=== PATIENT | male | born 1970 | race Two or more races ===

== ENCOUNTER 2017-11-18 12:19 | Inpatient (IN) | payer OTHER ==
[2017-11-18 13:00] VITALS: BMI 22.3
--- NOTE | 2017-11-18 15:10 | HP ---
COWS - Scale Resting Pulse: 0= [place] 80 or Below Sweatin= Chills/Flushing Restless Observation: 1= Difficult to Sit Still Pupil Size: 1= Pupils >than Normal Bone or Joint Aches: 2= Severe Diffuse Aches Runny Nose/ Eye Tearin= Runny Nose/Eyes GI Upset > 30mins: 3= Vomiting/Diarrhea Tremor Observation: 2= Slight Tremor Visible Yawning Observation: 1= 1-2x During Session Anxiety or Irritability: 2=Irritable/Anxious Goose Flesh Skin: 0=Smooth Skin COWS Score: 15 Admission ROS S - [facility] Chief Complaint: i need help to stop using percocet and oxycodone,refer for detox from [facility] with the letter weight loss multiple sclerosis with blindness of right eye since 2009 also cocaine and marijuana abused anxiety,depression,insomnia Allergies/Adverse Reactions: Allergies Allergy/AdvReac Type Severity Reaction Status Date / Time No Known Allergies Allergy Verified 11/18/17 14:50 History of Present Illness: this 46 years old male with opiate dependence,cocaine and marijuana dependence, need help to stop using and refer for detox from [facility] as mention above blindness of right eye from multiple sclerosis since 2009 Exam Limitations: No Limitations - Ebola screening Have you traveled outside of the country in the last 21 days: No (N) Have you had contact with anyone from an Ebola affected area: No Have you been sick,other than usual withdrawal symptoms: No Do you have a fever: No - Review of Systems Constitutional: Chills, Loss of Appetite, Malaise, Night Sweats, Changes in sleep, Weakness, Unintentional Wgt. Loss EENT: reports: Nose Congestion (blindness of right eye), Other Respiratory: reports: No Symptoms reported Cardiac: reports: No Symptoms Reported GI: reports: Diarrhea, Nausea, Vomiting, Abdominal cramping : reports: No Symptoms Reported Musculoskeletal: reports: Back Pain, Joint Pain, Muscle Pain Integumentary: reports: Dryness Neuro: reports: Headache, Tremors Endocrine: reports: No Symptoms Reported Hematology: reports: No Symptoms Reported Psychiatric: reports: No Sypmtoms Reported, Judgement Intact, Mood/Affect Appropiate, Orientated x3, Anxious, Depressed Patient History - Patient Medical History Hx Anemia: No Hx Asthma: No Hx Chronic Obstructive Pulmonary Disease (COPD): No Hx Cancer: No Hx Cardiac Disorders: No Hx Congestive Heart Failure: No Hx Hypertension: No Hx Hypercholesterolemia: No Hx Pacemaker: No HX Cerebrovascular Accident: No Hx Seizures: No Hx Dementia: No Hx Diabetes: No Hx Gastrointestinal Disorders: No Hx Liver Disease: No Hx Genitourinary Disorders: No Hx Sexually Transmitted Disorders: No Hx Renal Disease (ESRD): No Hx Thyroid Disease: No Hx Human Immunodeficiency Virus (HIV): No Hx Hepatitis C: No Hx Depression: Yes Hx Suicide Attempt: Yes (2002 overdose will pills) Hx Bipolar Disorder: No Hx Schizophrenia: No Other Medical History: no suicidal,no homicidal - Patient Surgical History Past Surgical History: No Hx Neurologic Surgery: No Hx Cataract Extraction: No Hx Cardiac Surgery: No Hx Lung Surgery: No Hx Breast Surgery: No Hx Breast Biopsy: No Hx Abdominal Surgery: No Hx Appendectomy: No Hx Cholecystectomy: No Hx Genitourinary Surgery: No Hx Section: No Hx Orthopedic Surgery: No Anesthesia Reaction: No - PPD History Documented Results: Negative w/o proof Date: 07/12/13 PPD to be Administered?: Yes - Smoking Cessation Smoking history: Current every day smoker Have you smoked in the past 12 months: Yes Aproximately how many cigarettes per day: 8 Hx Chewing Tobacco Use: No Initiated information on smoking cessation: Yes 'Breaking Loose' booklet given: 11/18/17 - Substance & Tx. History Hx Alcohol Use: No Hx Substance Use: Yes Substance Use Type: Heroin Hx Substance Use Treatment: Yes ([facility]) - Substances Abused Heroin Route: Inhalation Frequency: Daily Amount used: 3 BAGS Age of first use: 20 Date of Last Use: 11/17/17 Cocaine Route: Inhalation Frequency: 1-3 times last 30 days Amount used: 2-3 GRAMS Age of first use: 16 Date of Last Use: 11/16/17 Family Disease History - Family Disease History Family Disease History: Diabetes: Mother, Heart Disease: Mother, Other: Father ( father side of the family and one child ( half brotyher)) Admission Physical Exam BHS - Vital Signs Vital Signs: Vital Signs - 24 hr 11/18/17 12:57 Temperature 97.0 F L Pulse Rate 75 Respiratory 20 Rate Blood Pressure 98/66 - Physical General Appearance: Yes: Moderate Distress, Tremorous, Irritable, Sweating, Anxious HEENTM: Yes: Normal ENT Inspection, Other (blindness of right eye from ms) Respiratory: Yes: Lungs Clear, Normal Breath Sounds, No Respiratory Distress Neck: Yes: Within Normal Limits, Supple, Trachea in good position Breast: Yes: Within Normal Limits Cardiology: Yes: Within Normal Limits, Regular Rhythm, Regular Rate, S1, S2 Abdominal: Yes: Within Normal Limits, Normal Bowel Sounds, Non Tender, Flat, Soft Genitourinary: Yes: Within Normal Limits Back: Yes: Muscle Spasm Musculoskeletal: Yes: Back pain, Muscle Pain Extremities: Yes: Tremors Neurological: Yes: Fully Oriented, Alert, Motor Strength 5/5 Integumentary: Yes: Dry Lymphatic: Yes: Within Normal Limits - Diagnostic (1) Opioid dependence with withdrawal Current Visit: Yes Status: Acute (2) Cocaine dependence Current Visit: No Status: Acute (3) [place] (generalized anxiety disorder) Current Visit: No Status: Acute (4) Depression Current Visit: Yes Status: Acute (5) Insomnia Current Visit: Yes Status: Acute (6) Weight loss Current Visit: Yes Status: Acute (7) 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: Acute (8) History of multiple sclerosis Current Visit: Yes Status: Acute Cleared for Admission [facility] - Detox or Rehab [facility] Level of Care: Medically Managed Detox Regimen/Protocol: Methadone [facility] Breath Alcohol Content Breath Alcohol Content: 0 Urine Drug Screen - Results Drug Screen Negative: No Urine Drug Screen Results: THC-Marijuana, DANILO-Cocaine, OPI-Opiates, OXY- Oxycodone, FEN-Fentanyl
[2017-11-18] MEDS ORDERED: MAGNESIUM CITRATE 300 ML BOTTLE PO PRN (15:51)
[2017-11-18] MEDS ORDERED: ACETAMINOPHEN 325 MG TABLET (FP) PO PRN (15:51)
[2017-11-18] MEDS ORDERED: MAG HYDROX/AL HYDROX/SIMETH 30 ML UNIT-DOSE CUP PO PRN (15:51)
[2017-11-18] MEDS ORDERED: IBUPROFEN 400 MG TABLET (FP) PO PRN (15:51)
[2017-11-18] MEDS ORDERED: NICOTINE POLACRILEX 2 MG GUM BC PRN (15:51)
[2017-11-18] MEDS ORDERED: P-EPHED 60MG/TRIPROLIDI 2.5MG TABLET PO PRN (15:51)
[2017-11-18] MEDS ORDERED: hydrOXYzine PAMOATE 25 MG CAPSULE (FP) PO PRN (15:51)
[2017-11-18] MEDS ORDERED: LOPERAMIDE HCL 2 MG CAPSULE PO PRN (15:51)
[2017-11-18] MEDS ORDERED: MENTHOL/PHENOL 1 EACH UD MM PRN (15:51)
[2017-11-18] MEDS ORDERED: guaiFENesin/D-METHORPHAN HB 10 ML UNIT-DOSE CUPS PO PRN (15:51)
[2017-11-18] MEDS ORDERED: MAGNESIUM HYDROX 2400MG/30ML ORAL SUSPENSION 30 ML CUP PO PRN (15:51)
[2017-11-18] MEDS ORDERED: METHADONE HCL 10 MG TABLET (FOR DETOX USE ONLY) PO ONE ×2 (16:00→23:00)
[2017-11-18] MEDS: diazePAM 5 MG TABLET PO PRN ×2 (16:49→22:19)
[2017-11-18] MEDS: NICOTINE 21 MG/24 HOURS TOPICAL PATCH TD SCH (16:51)
[2017-11-18] MEDS ORDERED: TERAZOSIN HCL 5 MG CAPSULE PO SCH (22:00)
[2017-11-18] MEDS ORDERED: THIAMINE HCL 100 MG TABLET (FP) PO SCH (22:00)
[2017-11-18] MEDS ORDERED: MELATONIN 5 MG TABLETS PO PRN (22:00)
[2017-11-18] MEDS: GABAPENTIN 300 MG CAPSULE (FP) PO SCH (22:19)
[2017-11-18] MEDS: CYCLOBENZAPRINE HCL 10 MG TABLET (FP) PO SCH (22:19)
[2017-11-19 00:58] LABS: URINE APPEARANCE CLEAR; URINE BILIRUBIN NEGATIVE (<2.0 mg/dL); URINE COLOR STRAW; URINE GLUCOSE (UA) NEGATIVE (NEGATIVE); URINE KETONE NEGATIVE (NEGATIVE); URINE LEUK ESTERASE NEGATIVE (NEGATIVE); URINE NITRITE NEGATIVE (NEGATIVE); URINE PROTEIN NEGATIVE (NEGATIVE); URINE UROBILINOGEN NEGATIVE mg/dL (0.2-1.0)
[2017-11-19] MEDS: diazePAM 5 MG TABLET PO PRN ×2 (05:07→10:12)
[2017-11-19] MEDS: GABAPENTIN 300 MG CAPSULE (FP) PO SCH ×2 (05:07→16:24)
[2017-11-19] MEDS ORDERED: PRENATAL VITAMINS W/ FOLIC ACID TABLET (FP) PO SCH (10:00)
[2017-11-19] MEDS ORDERED: METHADONE HCL 10 MG TABLET (FOR DETOX USE ONLY) PO ONE (10:00)
[2017-11-19 10:07] LABS: HEMATOCRIT 44.1 % (35.4-49); MCH 29.1 pg (25.7-33.7); MCHC 31.8 g/dl (32.0-35.9); MEAN CELL VOLUME 91.4 fl (80-96); MEAN PLT VOLUME 9.7 fl (7.5-11.1); PLATELET COUNT 309 K/MM3 (134-434); RBC 4.82 M/mm3 (4.00-5.60); RDW 15.1 % (11.9-15.9)
[2017-11-19] MEDS: CYCLOBENZAPRINE HCL 10 MG TABLET (FP) PO SCH (10:12)
[2017-11-19] MEDS: NICOTINE 21 MG/24 HOURS TOPICAL PATCH TD SCH (10:13)
[2017-11-19 10:16] LABS: ALBUMIN 3.8 g/dl (3.4-5.0); ALK PHOS 92 U/L (45-117); ANION GAP 1 MMOL/L (8-16); BILIRUBIN,TOTAL 0.3 mg/dL (0.2-1); BLOOD UREA NITROGEN 8 mg/dL (7-18); CALCIUM 9.5 mg/dL (8.5-10.1); CHLORIDE 107 mmol/L (98-107); CO2 33 mmol/L (21-32); CREATININE 0.8 mg/dL (0.55-1.3); GLUCOSE,RANDOM 68 mg/dL (74-106); POTASSIUM 4.8 mmol/L (3.5-5.1); SGOT/AST 17 U/L (15-37); SGPT/ALT 23 U/L (13-61); SODIUM 141 mmol/L (136-145); TOT PROT 7.1 g/dl (6.4-8.2)
--- NOTE | 2017-11-19 13:43 | CONSULT ---
[facility] Psychiatric Consult - Data Date of interview: 11/19/17 Admission source: [facility] Identifying data: Readmission to [facility] for this 46 y/o male seeking detoxification treatment (heroin,cocaine,marihuana).Patient is , a father of two,domiciled,unemployed and supported on SSI benefits. Substance Abuse History: Confirmed by the patient in this interview. Details in current [facility] report : Smoking history: Current every day smoker. Have you smoked in the past 12 months: Yes. Aproximately how many cigarettes per day: 8. Hx Chewing Tobacco Use: No. Initiated information on smoking cessation: Yes. 'Breaking Loose' booklet given: 11/18/17. - Substance & Tx. History. Hx Alcohol Use: No. Hx Substance Use: Yes. Substance Use Type: Heroin. Hx Substance Use Treatment: Yes ([facility] in 2013). - Substances Abused. Heroin. Route: Inhalation. Frequency: Daily. Amount used: 3 BAGS. Age of first use: 20. Date of Last Use: 11/17/17. Cocaine. Route: Inhalation. Frequency: 1-3 times last 30 days. Amount used: 2-3 GRAMS. Age of first use: 16. Date of Last Use: 11/16/17 Medical History: Patient is a moderately sedated historian. Data taken from chart. Noted report of multiple sclerosis and blindness in right eye (since 2009 ). Psychiatric History: Patient denies history of psychiatric illness, hospitalizations or suicide attempts.However, a review of records demonstrates a different profile as evidenced by this segment of Dr Kerr's note of 07/11/13 : " Patient reports history of anxiety and depression, first psychiatric treatment in 1998 while incarcerated saw the psychiatrist and was on Seroquel, Risperdal. He reports spend 26 years([facility] and off) in [facility]. In 2002 admitted to [facility] due to depression and overdose with pills, stayed 8 days, treated with Zoloft. Reports he was on Zoloft , Klonopin on and off prescribed by psychiatrist at [facility], last time he took medications was 2 months ago." End of quotation. Physical/Sexual Abuse/Trauma History: No history. Additional Comment: Urine Drug Screen Results: THC-Marijuana, DANILO-Cocaine, OPI- Opiates, OXY-Oxycodone, FEN-Fentanyl.Noted. Mental Status Exam - Mental Status Exam Alert and Oriented to: Person Cognitive Function: Impaired (confused) Patient Appearance: Unkempt, Disheveled Mood: Withdrawn Affect: Constricted Patient Behavior: Sedated, Fatigued, Wandering Speech Pattern: Delayed, Slurred, Garbled Voice Loudness: Moderately Soft/Quiet Thought Process: Disorganized Thought Disorder: Bizarre Hallucinations: Denies Suicidal Ideation: Denies Homicidal Ideation: Denies Insight/Judgement: Poor Sleep: Well Appetite: Good (ate lunch) Gait/Station: Other (unsteady gait ; patient is wandering around) Psychiatric Findings - Problem List ([place] 1, 2,3) (1) Delirium Current Visit: Yes Status: Suspected (2) Sedated Current Visit: Yes Status: Acute (3) Opioid dependence with withdrawal Current Visit: Yes Status: Acute (4) Cocaine dependence Current Visit: Yes Status: Chronic (5) Cannabis dependence Current Visit: Yes Status: Chronic (6) Substance induced mood disorder Current Visit: Yes Status: Acute - Initial Treatment Plan Initial Treatment Plan: In view of unsteady gait + mental confusion + wandering behavior, the patient is placed under Constant Observation for safety reasons. Recommend re-evaluation of detoxification regimen. Medical management for delirium. Psychiatry-Liaison will follow.
--- NOTE | 2017-11-19 13:49 | PN ---
S COWS - Scale Resting Pulse: 0= [place] 80 or Below Sweatin= Chills/Flushing Restless Observation: 3= Extraneous Movement Pupil Size: 1= Pupils >than Normal Bone or Joint Aches: 2= Severe Diffuse Aches Runny Nose/ Eye Tearin= Runny Nose/Eyes GI Upset > 30mins: 3= Vomiting/Diarrhea Tremor Observation of Outstretched Hands: 2= Slight Tremor Visible Yawning Observation: 2= >3x During Session Anxiety or Irritability: 2=Irritable/Anxious Goose Flesh Skin: 0=Smooth Skin COWS Score: 18 BHS Progress Note (SOAP) Subjective: Tremor, anxiety, dizziness; patient is confused as per RN and requires one to one staff, he was seen and evaluated by psychiatrist Objective: 11/19/17 13:46 Last Vital Signs Temp Pulse Resp BP Pulse Ox 97.0 F L 60 16 82/58 L 11/19/17 09:50 11/19/17 09:50 11/19/17 09:50 11/19/17 09:51 Hypotenison: encouraged PO water hydration; repeated vs: b/p 101/69, p 74 Laboratory Tests 11/18/17 11/19/17 11/19/17 15:45 00:30 06:00 WBC 9.0 RBC 4.82 Hgb 14.0 Hct 44.1 MCV 91.4 MCH 29.1 MCHC 31.8 L RDW 15.1 Plt Count 309 MPV 9.7 D Sodium Potassium Chloride Carbon Dioxide Anion Gap BUN Creatinine Creat Clearance w eGFR Random Glucose Calcium Total Bilirubin AST ALT Alkaline Phosphatase Total Protein Albumin Urine Color Straw Urine Appearance Clear Urine pH 8.0 Ur Specific [place] 1.008 L Urine Protein Negative Urine Glucose (UA) Negative Urine Ketones Negative Urine Blood Negative Urine Nitrite Negative Urine Bilirubin Negative Urine Urobilinogen Negative Ur Leukocyte Esterase Negative RPR Titer HIV 1&2 Antibody Screen Negative HIV P24 Antigen Negative 11/19/17 11/19/17 06:00 06:00 WBC RBC Hgb Hct MCV MCH MCHC RDW Plt Count MPV Sodium 141 Potassium 4.8 Chloride 107 Carbon Dioxide 33 H Anion Gap 1 L BUN 8 Creatinine 0.8 Creat Clearance w eGFR > 60 Random Glucose 68 L Calcium 9.5 Total Bilirubin 0.3 AST 17 ALT 23 Alkaline Phosphatase 92 Total Protein 7.1 Albumin 3.8 Urine Color Urine Appearance Urine pH Ur Specific [place] Urine Protein Urine Glucose (UA) Urine Ketones Urine Blood Urine Nitrite Urine Bilirubin Urine Urobilinogen Ur Leukocyte Esterase RPR Titer Nonreactive HIV 1&2 Antibody Screen HIV P24 Antigen Labs reviewed 11/19/17 14:00 Assessment: 11/19/17 13:52 Withdrawal sxs Plan: Continue detox Hypotension: encouraged PO water intake Seen by psychiatrist, placed on one to one for safety due to confusion? Ammonia level ordered. Consider transfer patient to ER if no improvement.
[2017-11-19 14:53] VITALS: BP 101/69; PULSE 74; TEMP 97.8
--- NOTE | 2017-11-19 15:53 | PN ---
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 Patient with pmhx of multiple sclerosis (MS) dx 2009 and right eye blindness since 12/2014 due to MS. Patient denies any pshx and reported pphx of PTSD, Anxiety, depression and insomnia. As per patient, he has been using 10 tablets of 10mg percocet daily. He reported upon admission using percocet and oxycodone , cocaine and cannabis. Patient noted to be irritable, confused and demanding to be discharged. Patient is able to state his full name and date of , stated today is even though advertising writer corrected him and told him today is Wednesday. As per patient, we are now in November 2017 and he responded correctly that Dio Oseguera is the President of the [place] Patient stated that he is presently at [facility]. He later stated that he is at [facility]. Patient is irritable, restless and presently exhibits changes in mental status as this differs from his behavior this morning. He was hypotensive (82/58) and c/o dizziness but now denies any dizziness. Patient was placed on one to one observation for safety and ordered for transfer to [facility] ER for further evaluation. Ammonia level ordered (presently pending). Patient is uncooperative with examination at this time and requested to be left alone and to be discharged.
[2017-11-20] MEDS ORDERED: METHADONE HCL 5 MG TABLET (FOR DETOX USE ONLY) PO ONE (10:00)
[2017-11-21] MEDS ORDERED: METHADONE HCL 5 MG TABLET (FOR DETOX USE ONLY) PO ONE (10:00)
[2017-11-22] MEDS ORDERED: METHADONE HCL 10 MG TABLET (FOR DETOX USE ONLY) PO ONE (10:00)
[2017-11-23] MEDS ORDERED: METHADONE HCL 5 MG TABLET (FOR DETOX USE ONLY) PO ONE (06:00)
== END 2017-11-19 21:58 | disposition short-term general hospital (02) | DRG 773 ==
LOC: YASAS 12:19 → Y3N 15:28
PROC: HZ2ZZZZ Detoxification Services for Substance Abuse Treatment (ICD-10-PCS; principal; 2017-11-18)
DX: F11.23 Opioid dependence with withdrawal (principal); F14.20 Cocaine dependence, uncomplicated; F12.20 Cannabis dependence, uncomplicated; F17.210 Nicotine dependence, cigarettes, uncomplicated; F19.24 Other psychoactive substance dependence with psychoactive substance-induced mood disorder; F32.9 Major depressive disorder, single episode, unspecified; F41.1 Generalized anxiety disorder; G35 Multiple sclerosis; H54.40 Blindness, one eye, unspecified eye; R41.0 Disorientation, unspecified; G47.00 Insomnia, unspecified; I95.9 Hypotension, unspecified; Z87.898 Personal history of other specified conditions; Z91.5 Personal history of self-harm
CPT/HCPCS: 36415; 80053; 81003; 82140; 85027; 86593; 87389

== ENCOUNTER 2017-11-19 16:23 | Emergency (ER) | payer OTHER ==
--- NOTE | 2017-11-19 16:35 | PDOC ---
Attending Attestation - Resident Resident Name: Nato Olivera - ED Attending Attestation I have performed the following: I have examined & evaluated the patient, The case was reviewed & discussed with the resident, I agree w/resident's findings & plan, Exceptions are as noted - HPI HPI: 11/19/17 16:39 46y M hx anxiety, depression, MS (blind in R eye), polysubstance abuse from [facility] for etox presents with AMS, was noted to be more somnolent this morning but slowely improved. Per EMS he was alert oriented, had pin point pupils upon EMS arrival. Pt has no complaints, does endorse using heroin yesterday morning. Per note from [facility], pt was beligerent, agitated, had a psych consult there who recommended coming to the ED if persistently agitated. The patient upon arival was aox3, was agitated, but states that his 'girl' took his phone and there is something on the phone that is private. he seemed very agitated, stating he needs to get the phone back. however., he was very goal directed, states he does want detox, but he needs his phone back. neris had requested an ammonia level, however the pt had normal LFTs, do not think he hs encephlopathic pt had labs this morning that were unremarkble on exm: agitated, but will calm down and is directable denies si/hi no head trauma abd soft nontender card: rrr. no mrg will obtain ammonia level per psych but discussed with apteint and he agreed to the lab work as long as it doesnt take too long - Physicial Exam PE: 11/19/17 18:26 see above - Medical Decision Making 11/19/17 18:25 ammonia level neg pt states he will go back to [facility] onw
[2017-11-19 16:38] VITALS: BP 108/71; PULSE 79; TEMP 98; BMI 22.3
--- NOTE | 2017-11-19 16:47 | PDOC ---
History of Present Illness - General Chief Complaint: Lethargy Stated Complaint: AMS Time Seen by Provider: 11/19/17 16:34 - History of Present Illness Initial Comments: 11/19/17 16:41 46 yo M with h/o Anxiety, Depression, MS, R eye blindness (2009), Cocaine, and Marijuana abuse, recent detox for Heroin, Percocet and Oxycodone BIBA for AMS. Patient BIBA from [facility] d/t wandering behavior, increased agitation, and confusion , with interval episode of lethargy prior to arrival. EMS reports patient A&Ox3 , with stable vitals, and detox facility ([address] [place] [address]) reports patient was hyperomonolent, but responsive to verbal stimuli. Currently asymptomatic. Reports non prescribed subaxone use 1 week ago. Patient denies SI, HI, CAM, N/V, F,C, palpitations, CP, SOB, urinary complaints, abdominal pain, diarrhea, constipation, lightheadedness, weakness, sensory changes. PMHx: as noted above ROS: as noted SHx: Patient states that he has not used heroin, cocaine, or other illicit drugs within one week. Allergies: NKDA Past History - Past Medical History Allergies/Adverse Reactions: Allergies Allergy/AdvReac Type Severity Reaction Status Date / Time No Known Allergies Allergy Verified 11/19/17 16:31 Home Medications: Ambulatory Orders Cyclobenzaprine HCl [Flexeril 10 mg] 10 mg PO BID 11/18/17 Gabapentin [Neurontin] 600 mg PO TID 11/18/17 Terazosin HCl [Hytrin] 5 mg PO HS 11/18/17 Anemia: No Asthma: No Cancer: No Cardiac Disorders: No CVA: No COPD: No CHF: No Dementia: No Diabetes: No GI Disorders: No Disorders: No HTN: No Hypercholesterolemia: No Kidney Stones: No Liver Disease: No Seizures: No Thyroid Disease: No - Surgical History Abdominal Surgery: No Appendectomy: No Cardiac Surgery: No Cholecystectomy: No Lung Surgery: No Neurologic Surgery: No Orthopedic Surgery: No - Reproductive History Testicular Surgery: No - Suicide/Smoking/Psychosocial Hx Smoking History: Never smoked Have you smoked in the past 12 months: Yes Number of Cigarettes Smoked Daily: 8 'Breaking Loose' booklet given: 11/18/17 Hx Alcohol Use: No Drug/Substance Use Hx: Yes Substance Use Type: Heroin Hx Substance Use Treatment: Yes ([facility]hab in 2014) Review of Systems - Review of Systems Comments:: 11/19/17 17:16 GENERAL/CONSTITUTIONAL: No fever or chills. No weakness. HEAD, EYES, EARS, NOSE AND THROAT: No change in vision. No ear pain or discharge. No sore throat. CARDIOVASCULAR: No chest pain or shortness of breath RESPIRATORY: No cough, wheezing, or hemoptysis. GASTROINTESTINAL: No nausea, vomiting, diarrhea or constipation. GENITOURINARY: No dysuria, frequency, or change in urination. MUSCULOSKELETAL: No joint or muscle swelling or pain. No neck or back pain. SKIN: No rash NEUROLOGIC: No headache, vertigo, loss of consciousness, or change in strength/ sensation. ENDOCRINE: No increased thirst. No abnormal weight change HEMATOLOGIC/LYMPHATIC: No anemia, easy bleeding, or history of blood clots. ALLERGIC/IMMUNOLOGIC: No hives or skin allergy. *Physical Exam - Vital Signs Last Vital Signs Temp Pulse Resp BP Pulse Ox 98 F 79 12 108/71 99 11/19/17 16:31 11/19/17 16:31 11/19/17 16:31 11/19/17 16:31 11/19/17 16:31 - Physical Exam Comments: 11/19/17 17:15 GENERAL: Anxious appearing, and wandering. Awake, alert, and fully oriented, in no acute distress HEAD: No signs of trauma, normocephalic, atraumatic EYES: Pupils miotic. PERRLA, EOMI, sclera anicteric, conjunctiva clear ENT: Auricles normal inspection, hearing grossly normal, nares patent, oropharynx clear without exudates. Moist mucosa NECK: Normal ROM, supple, no lymphadenopathy, JVD, or masses LUNGS: No distress, speaks full sentences, clear to auscultation bilaterally HEART: Regular rate and rhythm, normal S1 and S2, no murmurs, rubs or gallops, peripheral pulses normal and equal bilaterally. ABDOMEN: Soft, nontender, normoactive bowel sounds. No guarding, no rebound. No masses EXTREMITIES : Normal inspection, Normal range of motion, no edema. No clubbing or cyanosis. NEUROLOGICAL: Cranial nerves II through XII grossly intact. Normal speech, normal gait, no focal sensorimotor deficits SKIN: Warm, Dry, normal turgor, no rashes or lesions noted Medical Decision Making - Medical Decision Making 11/19/17 17:16 46 yo M with h/o Anxiety, Depression, MS, R eye blindness (2010), Cocaine, and Marijuana abuse, recent detox for Heroin, Percocet and Oxycodone BIBA for AMS. VSS, AF, A&Ox3. Patient evaluated at [facility]. Triage lab eval from earlier today unremarkable. Ammonia pending. Will f/u on ammonia. R/o toxic encephalopthy. Ed Course: Patient seen ambulating hallways and agitated. Security at bedside d/t patient elopement risk. Repeatedly requesting d/c to home d/t social concerns with girlfriend Ammonia Neg Patient stable for d/c with return precautions. *DC/Admit/Observation/Transfer Diagnosis at time of Disposition: Altered mental status Qualifiers: Altered mental status type: unspecified Qualified Code(s): R41.82 - Altered mental status, unspecified - Discharge Dispostion Disposition: HOME Condition at time of disposition: Stable Decision to Admit order: No - Referrals - Patient Instructions Printed Discharge Instructions: DI for Altered Mental Status Additional Instructions: Please return to the emergency department with any new or worsening symptoms or concerns. Please follow up with your primary care physician within 72 hours. - Post Discharge Activity - Attestations Physician Attestion: 11/19/17 18:23 I attest to the information provided in this note.
== END 2017-11-19 18:35 | disposition home or self-care (01) ==
LOC: JER 16:23
DX: R41.82 Altered mental status, unspecified (principal); F41.8 Other specified anxiety disorders; F32.9 Major depressive disorder, single episode, unspecified; H54.61 Unqualified visual loss, right eye, normal vision left eye; G35 Multiple sclerosis; F11.10 Opioid abuse, uncomplicated; F14.10 Cocaine abuse, uncomplicated; F12.10 Cannabis abuse, uncomplicated
CPT/HCPCS: 82140; 99282-25

== ENCOUNTER 2018-01-18 16:16 | Inpatient (IN) | payer OTHER ==
[2018-01-18 19:16] VITALS: BMI 22.3
--- NOTE | 2018-01-18 21:13 | HP ---
CIWA Score - Admission Criteria OASAS Guidelines: Admission for Medically Managed Detox: Requires at least one of the followin. CIWA greater than 12 2. Seizures within the past 24 hours 3. Delirium tremens within the past 24 hours 4. Hallucinations within the past 24 hours 5. Acute intervention needed for co occurring medical disorder 6. Acute intervention needed for co occurring psychiatric disorder 7. Severe withdrawal that cannot be handled at a lower level of care (continued vomiting, continued diarrhea, abnormal vital signs) requiring intravenous medication and/or fluids 8. Admission ROS S - HPI Chief Complaint: Seeking admission to Rehab Allergies/Adverse Reactions: Allergies Allergy/AdvReac Type Severity Reaction Status Date / Time No Known Allergies Allergy Verified 11/19/17 16:31 History of Present Illness: 47 years old male is seeking admission to Rehab. He has medical history of multiple sclerosis, anxiety and depression. He denies suicide attempt and suicidal ideation at this time. Exam Limitations: No Limitations - Ebola screening Have you traveled outside of the country in the last 21 days: No (N) Have you had contact with anyone from an Ebola affected area: No Have you been sick,other than usual withdrawal symptoms: No Do you have a fever: No - Review of Systems Constitutional: No Symptoms Reported EENT: reports: No Symptoms Reported Respiratory: reports: No Symptoms reported Cardiac: reports: No Symptoms Reported GI: reports: No Symptoms Reported : reports: No Symptoms Reported Musculoskeletal: reports: No Symptoms Reported Integumentary: reports: No Symptoms Reported Neuro: reports: No Symptoms reported Endocrine: reports: No Symptoms Reported Hematology: reports: No Symptoms Reported Psychiatric: reports: Mood/Affect Appropiate, Orientated x3 Other Systems: Reviewed and Negative Patient History - Patient Medical History Hx Anemia: No Hx Asthma: No Hx Chronic Obstructive Pulmonary Disease (COPD): No Hx Cancer: No Hx Cardiac Disorders: No Hx Congestive Heart Failure: No Hx Hypertension: No Hx Hypercholesterolemia: No Hx Pacemaker: No HX Cerebrovascular Accident: No Hx Seizures: No Hx Dementia: No Hx Diabetes: No Hx Gastrointestinal Disorders: No Hx Liver Disease: No Hx Genitourinary Disorders: No Hx Sexually Transmitted Disorders: No Hx Renal Disease (ESRD): No Hx Thyroid Disease: No Hx Human Immunodeficiency Virus (HIV): No Hx Hepatitis C: No Hx Depression: Yes Hx Suicide Attempt: Yes (2002 overdose will pills. Denies suicidal ideation at this time) Hx Bipolar Disorder: No Hx Schizophrenia: No Other Medical History: ANXIETY, MULTIPLE SCLEROSIS -GABAPENTIN AND FLEXARIL - Patient Surgical History Past Surgical History: No - PPD History Previous Implant?: Yes Documented Results: Negative w/o proof Implanted On Prior [facility] Admission?: Yes Date: 07/12/13 PPD to be Administered?: Yes - Reproductive History Patient is a Female of Child Bearing Age (11 -55 yrs old): No (MALE) - Smoking Cessation Smoking history: Current every day smoker Have you smoked in the past 12 months: Yes Aproximately how many cigarettes per day: 8 Hx Chewing Tobacco Use: No Initiated information on smoking cessation: Yes 'Breaking Loose' booklet given: 01/18/18 - Substance & Tx. History Hx Alcohol Use: No Hx Substance Use: Yes Substance Use Type: Cocaine, Heroin, Marijuana Hx Substance Use Treatment: Yes ([facility]) - Substances Abused Marijuana/Hashish Route: Smoking Amount used: 20 GRAMS MONTHLY Age of first use: 13 Date of Last Use: 01/16/18 Cocaine Route: Smoking Frequency: Daily Amount used: $100 DAILY Age of first use: 14 Date of Last Use: 01/16/18 Family Disease History - Family Disease History Family Disease History: Diabetes: Mother, Heart Disease: Mother, Other: Father ( father side of the family and one child ( half broty)) Admission Physical Exam [facility] - Vital Signs Vital Signs: Vital Signs - 24 hr 01/18/18 19:14 Temperature 97.4 F L Pulse Rate 93 H Respiratory 18 Rate Blood Pressure 119/83 - Physical General Appearance: Yes: No Apparent Distress, Appropriately Dressed HEENTM: Yes: EOMI, Normal ENT Inspection, Normocephalic, Normal Voice, Pale Conjunctivae L Respiratory: Yes: Lungs Clear, Normal Breath Sounds, No Respiratory Distress Neck: Yes: Supple Breast: Yes: Breast Exam Deferred Cardiology: Yes: Tachycardia Abdominal: Yes: Normal Bowel Sounds, Soft Genitourinary: Yes: Within Normal Limits Back: Yes: Normal Inspection Musculoskeletal: Yes: Back pain Extremities: Yes: Normal Inspection Neurological: Yes: tire layer II-XII NML intact, Alert, Normal Mood/Affect Integumentary: Yes: Warm Lymphatic: Yes: Within Normal Limits - Diagnostic (1) Anxiety Current Visit: Yes Status: Chronic (2) 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: Chronic (3) Cannabis dependence Current Visit: Yes Status: Chronic (4) Cocaine dependence Current Visit: Yes Status: Chronic (5) Depression Current Visit: Yes Status: Chronic Qualifiers: Depression Type: unspecified Qualified Code(s): F32.9 - Major depressive disorder, single episode, unspecified (6) History of multiple sclerosis Current Visit: Yes Status: Chronic (7) Nicotine dependence Current Visit: Yes Status: Chronic Qualifiers: Nicotine product type: cigarettes Substance use status: uncomplicated Qualified Code(s): F17.210 - Nicotine dependence, cigarettes, uncomplicated Cleared for Admission S - Detox or Rehab [facility] Level of Care: Observation Bed Claeared for Rehab Admission: Yes [facility] Breath Alcohol Content Breath Alcohol Content: 0 Urine Drug Screen - Results Drug Screen Negative: No Urine Drug Screen Results: THC-Marijuana, DANILO-Cocaine Inpatient Rehab Admission - Initial Determination Are CD services needed?: Yes Free of communicable disease: Yes Not in need of hospitalization: Yes - Rehab Admission Criteria Previous failed treatment: Yes Poor recovery environment: Yes Comorbidities: Yes Lacks judgement: No Patient is meeting Inpatient Rehab admission criteria:: Yes
[2018-01-18] MEDS ORDERED: ACETAMINOPHEN 325 MG TABLET (FP) PO PRN (21:25)
[2018-01-18] MEDS ORDERED: MAGNESIUM HYDROX 2400MG/30ML ORAL SUSPENSION 30 ML CUP PO PRN (21:25)
[2018-01-18] MEDS ORDERED: LOPERAMIDE HCL 2 MG CAPSULE PO PRN (21:25)
[2018-01-18] MEDS ORDERED: P-EPHED 60MG/TRIPROLIDI 2.5MG TABLET PO PRN (21:25)
[2018-01-18] MEDS ORDERED: guaiFENesin/D-METHORPHAN HB 10 ML UNIT-DOSE CUPS PO PRN (21:25)
[2018-01-18] MEDS ORDERED: MAGNESIUM CITRATE 300 ML BOTTLE PO PRN (21:25)
[2018-01-18] MEDS ORDERED: MAG HYDROX/AL HYDROX/SIMETH 30 ML UNIT-DOSE CUP PO PRN (21:25)
[2018-01-18] MEDS ORDERED: IBUPROFEN 400 MG TABLET (FP) PO PRN (21:25)
[2018-01-18] MEDS ORDERED: MENTHOL/PHENOL 1 EACH UD MM PRN (21:25)
[2018-01-19] MEDS: PRENATAL VITAMINS W/ FOLIC ACID TABLET (FP) PO SCH (10:52)
[2018-01-19] MEDS: NICOTINE 14 MG/24 HOURS TOPICAL PATCH TD SCH (10:53)
[2018-01-19 11:04] LABS: ALBUMIN 3.2 g/dl (3.4-5.0); ALK PHOS 79 U/L (45-117); ANION GAP 8 MMOL/L (8-16); BILIRUBIN,TOTAL 0.2 mg/dL (0.2-1); BLOOD UREA NITROGEN 15 mg/dL (7-18); CALCIUM 8.6 mg/dL (8.5-10.1); CHLORIDE 107 mmol/L (98-107); CO2 30 mmol/L (21-32); CREATININE 0.7 mg/dL (0.55-1.3); GLUCOSE,RANDOM 92 mg/dL (74-106); POTASSIUM 3.9 mmol/L (3.5-5.1); SGOT/AST 13 U/L (15-37); SGPT/ALT 19 U/L (13-61); SODIUM 145 mmol/L (136-145)
[2018-01-19 11:12] LABS: HEMATOCRIT 41.2 % (35.4-49); HEMOGLOBIN 13.1 GM/dL (11.7-16.9); MCH 29.1 pg (25.7-33.7); MCHC 31.8 g/dl (32.0-35.9); MEAN CELL VOLUME 91.4 fl (80-96); MEAN PLT VOLUME 7.9 fl (7.5-11.1); PLATELET COUNT 344 K/MM3 (134-434); RBC 4.51 M/mm3 (4.00-5.60); RDW 18.2 % (11.9-15.9); WHITE BLOOD COUNT 7.9 K/mm3 (4.0-10.0)
[2018-01-19 11:28] LABS: URINE APPEARANCE CLEAR; URINE BILIRUBIN NEGATIVE (<2.0 mg/dL); URINE COLOR DKYELLOW; URINE GLUCOSE (UA) NEGATIVE (NEGATIVE); URINE KETONE TRACE (NEGATIVE); URINE LEUK ESTERASE NEGATIVE (NEGATIVE); URINE NITRITE NEGATIVE (NEGATIVE); URINE PROTEIN NEGATIVE (NEGATIVE)
[2018-01-19] MEDS: CYCLOBENZAPRINE HCL 10 MG TABLET (FP) PO SCH ×2 (11:57→21:59)
[2018-01-19] MEDS: GABAPENTIN 300 MG CAPSULE (FP) PO SCH ×2 (11:57→21:59)
--- NOTE | 2018-01-19 13:38 | HP ---
Psychiatrist Admission - Data Date of interview: 01/19/18 Admission source: [facility] Identifying data: This is the first admssion to [facility] inpatient rehabilitation for this 47 years old H male,residing with his mother and aunt, supported by [facility]. Medical History: Significant for MS,R eye blindness. Psychiatric History: patient reports history of depressed mood,episodes of anxity.He was on medications on and off.Patient has no psychiatric OPD care, currently not on psychotropic medications and is not willing to restart. Physical/Sexual Abuse/Trauma History: denies Vital Signs: Vital Signs - 24 hr 01/18/18 01/19/18 01/19/18 19:14 03:30 07:08 Temperature 97.4 F L 97.7 F Pulse Rate 93 H 78 Respiratory 18 18 18 Rate Blood Pressure 119/83 129/66 Allergies/Adverse Reactions: Allergies Allergy/AdvReac Type Severity Reaction Status Date / Time No Known Allergies Allergy Verified 11/19/17 16:31 Date of last physical exam: 01/19/18 Concur with the findings of this exam: Yes - Substance Abuse/Tx History Hx Alcohol Use: No Hx Substance Use: Yes (cocaine since 14 yo,then crack,heroin since 24 yo, sniffing) Substance Use Type: Alcohol, Cocaine, Heroin Hx Substance Use Treatment: Yes (completed inpatient rehab in 2013) Mental Status Exam - Mental Status Exam Alert and Oriented to: Time, Place, Person Cognitive Function: Grossly Intact Mood: Euthymic Affect: Appropriate, Mood Congruent, Labile Patient Behavior: Cooperative Speech Pattern: Clear Voice Loudness: Normal Thought Process: Goal Oriented Thought Disorder: Not Present Hallucinations: Denies Suicidal Ideation: Denies Homicidal Ideation: Denies Insight/Judgement: Fair Sleep: Difficulty falling asleep Appetite: Fair Muscle strength/Tone: Mild Hypotonicity Gait/Station: Ataxic Psychiatric Findings - Problem List ([place] 1, 2,3) (1) 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: Chronic (2) Cannabis dependence Current Visit: Yes Status: Chronic (3) Cocaine dependence Current Visit: Yes Status: Chronic (4) History of multiple sclerosis Current Visit: Yes Status: Chronic (5) Nicotine dependence Current Visit: Yes Status: Chronic Qualifiers: Nicotine product type: cigarettes Substance use status: uncomplicated Qualified Code(s): F17.210 - Nicotine dependence, cigarettes, uncomplicated (6) Opioid dependence Current Visit: Yes Status: Chronic (7) Substance induced mood disorder Current Visit: Yes Status: Chronic - Initial Treatment Plan Initial Treatment Plan: Benadryl 50 mg po hs prn for insomnia.Will monitor progress.
[2018-01-19] MEDS: diphenhydrAMINE HCL 50 MG CAPSULE PO PRN (22:00)
[2018-01-19] MEDS: MELATONIN 5 MG TABLETS PO PRN (22:00)
[2018-01-19] MEDS: THIAMINE HCL 100 MG TABLET (FP) PO SCH (22:03)
[2018-01-19] MEDS ORDERED: PT OWN MED DRAWER 7, Y5N ONE (22:12)
[2018-01-20] MEDS: CYCLOBENZAPRINE HCL 10 MG TABLET (FP) PO SCH ×2 (09:38→21:06)
[2018-01-20] MEDS: PRENATAL VITAMINS W/ FOLIC ACID TABLET (FP) PO SCH (09:38)
[2018-01-20] MEDS: NICOTINE POLACRILEX 2 MG GUM BC PRN ×2 (09:39→17:52)
[2018-01-20] MEDS: NICOTINE 14 MG/24 HOURS TOPICAL PATCH TD SCH (09:39)
[2018-01-20] MEDS: GABAPENTIN 300 MG CAPSULE (FP) PO SCH ×2 (09:39→21:06)
[2018-01-20] MEDS ORDERED: COLLOIDAL OATMEAL 1 BAR EACH TP PRN (10:26)
[2018-01-20] MEDS: MINERAL OIL/PETROLAT/WATER TOPICAL CREAM 113 GM JAR TP SCH (11:30)
[2018-01-20] MEDS: THIAMINE HCL 100 MG TABLET (FP) PO SCH ×2 (17:56→21:06)
[2018-01-20] MEDS: diphenhydrAMINE HCL 50 MG CAPSULE PO PRN (21:06)
[2018-01-21] MEDS ORDERED: PT OWN MED DRAWER 7, Y5N ONE (08:45)
[2018-01-21] MEDS: NICOTINE 14 MG/24 HOURS TOPICAL PATCH TD SCH (10:13)
[2018-01-21] MEDS: GABAPENTIN 300 MG CAPSULE (FP) PO SCH ×2 (10:14→21:31)
[2018-01-21] MEDS: PRENATAL VITAMINS W/ FOLIC ACID TABLET (FP) PO SCH (10:14)
[2018-01-21] MEDS: CYCLOBENZAPRINE HCL 10 MG TABLET (FP) PO SCH ×2 (10:15→21:31)
[2018-01-21] MEDS: MINERAL OIL/PETROLAT/WATER TOPICAL CREAM 113 GM JAR TP SCH (10:16)
[2018-01-21] MEDS ORDERED: AMMONIUM LACTATE 12% LOTION 225 GM BOTTLE TP PRN (12:57)
--- NOTE | 2018-01-21 12:58 | PN ---
S Progress Note Note: Pt states he is having a lot of pain and withdrawal Sx: sweats, diarrhea and abd cramping. past h/o opioid use- was here in 11/2017 for heroin detox Will prescribe suboxone 8mg BID for heroin withdrawal [place] hydrin lotion for dry skin
[2018-01-21] MEDS: BUPRENORPHINE/NALOXONE 8 MG/2 MG FILM PACKET SL SCH ×2 (13:50→17:49)
[2018-01-21] MEDS: THIAMINE HCL 100 MG TABLET (FP) PO SCH (21:31)
[2018-01-21] MEDS: diphenhydrAMINE HCL 50 MG CAPSULE PO PRN (21:31)
[2018-01-22] MEDS: BUPRENORPHINE/NALOXONE 8 MG/2 MG FILM PACKET SL SCH ×2 (06:10→17:25)
[2018-01-22] MEDS: GABAPENTIN 300 MG CAPSULE (FP) PO SCH ×2 (09:33→21:31)
[2018-01-22] MEDS: MINERAL OIL/PETROLAT/WATER TOPICAL CREAM 113 GM JAR TP SCH (09:33)
[2018-01-22] MEDS: NICOTINE 14 MG/24 HOURS TOPICAL PATCH TD SCH (09:33)
[2018-01-22] MEDS: PRENATAL VITAMINS W/ FOLIC ACID TABLET (FP) PO SCH (09:33)
[2018-01-22] MEDS: CYCLOBENZAPRINE HCL 10 MG TABLET (FP) PO SCH ×2 (09:33→21:31)
[2018-01-22] MEDS: THIAMINE HCL 100 MG TABLET (FP) PO SCH (21:31)
[2018-01-22] MEDS: NICOTINE POLACRILEX 2 MG GUM BC PRN (21:31)
[2018-01-22] MEDS: MELATONIN 5 MG TABLETS PO PRN (21:32)
[2018-01-23] MEDS: BUPRENORPHINE/NALOXONE 8 MG/2 MG FILM PACKET SL SCH ×2 (06:11→17:32)
[2018-01-23] MEDS ORDERED: PT OWN MED DRAWER 7, Y5N ONE (08:44)
[2018-01-23] MEDS: MINERAL OIL/PETROLAT/WATER TOPICAL CREAM 113 GM JAR TP SCH (10:04)
[2018-01-23] MEDS: NICOTINE 14 MG/24 HOURS TOPICAL PATCH TD SCH (10:04)
[2018-01-23] MEDS: CYCLOBENZAPRINE HCL 10 MG TABLET (FP) PO SCH ×2 (10:04→21:03)
[2018-01-23] MEDS: GABAPENTIN 300 MG CAPSULE (FP) PO SCH ×2 (10:04→21:03)
[2018-01-23] MEDS: PRENATAL VITAMINS W/ FOLIC ACID TABLET (FP) PO SCH (10:04)
[2018-01-23] MEDS: THIAMINE HCL 100 MG TABLET (FP) PO SCH (21:03)
[2018-01-23] MEDS: MELATONIN 5 MG TABLETS PO PRN (21:03)
[2018-01-23] MEDS: diphenhydrAMINE HCL 50 MG CAPSULE PO PRN (21:05)
[2018-01-24] MEDS: BUPRENORPHINE/NALOXONE 8 MG/2 MG FILM PACKET SL SCH ×2 (06:00→17:50)
[2018-01-24] MEDS ORDERED: PT OWN MED DRAWER 7, Y5N ONE (09:03)
[2018-01-24] MEDS: GABAPENTIN 300 MG CAPSULE (FP) PO SCH ×2 (09:57→21:25)
[2018-01-24] MEDS: NICOTINE 14 MG/24 HOURS TOPICAL PATCH TD SCH (09:57)
[2018-01-24] MEDS: CYCLOBENZAPRINE HCL 10 MG TABLET (FP) PO SCH ×2 (09:57→21:25)
[2018-01-24] MEDS: PRENATAL VITAMINS W/ FOLIC ACID TABLET (FP) PO SCH (09:57)
[2018-01-24] MEDS: MINERAL OIL/PETROLAT/WATER TOPICAL CREAM 113 GM JAR TP SCH (09:58)
[2018-01-24] MEDS: THIAMINE HCL 100 MG TABLET (FP) PO SCH (21:25)
[2018-01-24] MEDS: diphenhydrAMINE HCL 50 MG CAPSULE PO PRN (21:25)
[2018-01-24] MEDS: MELATONIN 5 MG TABLETS PO PRN (21:26)
[2018-01-25] MEDS: BUPRENORPHINE/NALOXONE 8 MG/2 MG FILM PACKET SL SCH ×2 (06:05→18:01)
[2018-01-25] MEDS: PRENATAL VITAMINS W/ FOLIC ACID TABLET (FP) PO SCH (09:42)
[2018-01-25] MEDS: CYCLOBENZAPRINE HCL 10 MG TABLET (FP) PO SCH ×2 (09:42→21:23)
[2018-01-25] MEDS: MINERAL OIL/PETROLAT/WATER TOPICAL CREAM 113 GM JAR TP SCH (09:42)
[2018-01-25] MEDS: NICOTINE POLACRILEX 2 MG GUM BC PRN (09:42)
[2018-01-25] MEDS: NICOTINE 14 MG/24 HOURS TOPICAL PATCH TD SCH (09:42)
[2018-01-25] MEDS: GABAPENTIN 300 MG CAPSULE (FP) PO SCH ×2 (09:42→21:23)
[2018-01-25] MEDS: MELATONIN 5 MG TABLETS PO PRN (21:23)
[2018-01-25] MEDS: THIAMINE HCL 100 MG TABLET (FP) PO SCH (21:24)
[2018-01-26] MEDS: BUPRENORPHINE/NALOXONE 8 MG/2 MG FILM PACKET SL SCH ×2 (06:09→18:08)
[2018-01-26] MEDS: NICOTINE 14 MG/24 HOURS TOPICAL PATCH TD SCH (10:06)
[2018-01-26] MEDS: PRENATAL VITAMINS W/ FOLIC ACID TABLET (FP) PO SCH (10:06)
[2018-01-26] MEDS: CYCLOBENZAPRINE HCL 10 MG TABLET (FP) PO SCH ×2 (10:06→21:26)
[2018-01-26] MEDS: GABAPENTIN 300 MG CAPSULE (FP) PO SCH ×2 (10:06→21:26)
[2018-01-26] MEDS: MINERAL OIL/PETROLAT/WATER TOPICAL CREAM 113 GM JAR TP SCH (10:06)
[2018-01-26] MEDS: NICOTINE POLACRILEX 2 MG GUM BC PRN (10:07)
[2018-01-26] MEDS: MELATONIN 5 MG TABLETS PO PRN (21:26)
[2018-01-26] MEDS: THIAMINE HCL 100 MG TABLET (FP) PO SCH (21:26)
[2018-01-26] MEDS: diphenhydrAMINE HCL 50 MG CAPSULE PO PRN (21:27)
[2018-01-26] MEDS ORDERED: PT OWN MED DRAWER 7, Y5N ONE (21:30)
[2018-01-27] MEDS: BUPRENORPHINE/NALOXONE 8 MG/2 MG FILM PACKET SL SCH ×2 (06:14→17:29)
[2018-01-27] MEDS: PRENATAL VITAMINS W/ FOLIC ACID TABLET (FP) PO SCH (10:30)
[2018-01-27] MEDS: GABAPENTIN 300 MG CAPSULE (FP) PO SCH ×2 (10:30→21:54)
[2018-01-27] MEDS: NICOTINE 14 MG/24 HOURS TOPICAL PATCH TD SCH (10:31)
[2018-01-27] MEDS: CYCLOBENZAPRINE HCL 10 MG TABLET (FP) PO SCH ×2 (10:31→21:54)
[2018-01-27] MEDS: MINERAL OIL/PETROLAT/WATER TOPICAL CREAM 113 GM JAR TP SCH (10:31)
[2018-01-27] MEDS: MELATONIN 5 MG TABLETS PO PRN (21:54)
[2018-01-27] MEDS: THIAMINE HCL 100 MG TABLET (FP) PO SCH (21:54)
[2018-01-27] MEDS: diphenhydrAMINE HCL 50 MG CAPSULE PO PRN (21:55)
[2018-01-28] MEDS: BUPRENORPHINE/NALOXONE 8 MG/2 MG FILM PACKET SL SCH (06:09)
[2018-01-28 06:42] VITALS: BP 123/67; PULSE 105; TEMP 97.2
[2018-01-28] MEDS: PRENATAL VITAMINS W/ FOLIC ACID TABLET (FP) PO SCH (09:50)
[2018-01-28] MEDS: CYCLOBENZAPRINE HCL 10 MG TABLET (FP) PO SCH (09:50)
[2018-01-28] MEDS: GABAPENTIN 300 MG CAPSULE (FP) PO SCH (09:51)
[2018-01-28] MEDS: NICOTINE 14 MG/24 HOURS TOPICAL PATCH TD SCH (09:51)
[2018-01-28] MEDS: MINERAL OIL/PETROLAT/WATER TOPICAL CREAM 113 GM JAR TP SCH (09:52)
[2018-01-28] MEDS: NICOTINE POLACRILEX 2 MG GUM BC PRN (09:53)
--- NOTE | 2018-01-28 16:30 | PN ---
[facility] Progress Note Note: Patient compoleted this program today.stable for discharge.Patient will address his issues on outpatient basis.Scripts for 30 days provided.Stable for discharge today.
[2018-01-28] MEDS ORDERED: PT OWN MED DRAWER 7, Y5N ONE (16:31)
--- NOTE | 2018-01-28 16:45 | PN ---
[facility] Progress Note Note: Patient started on Suboxone while in rehab. Patient being discharged today. Reviewed risks of overdose if attempts to start opiates while on Suboxone. Also discussed loss of tolerance and overdose risks. Patient given referral for Suboxone maintenance at [facility]. Patient states wants to get into another rehab program in the next few days and provider discussed the possibility of there being a delay r/t insurance issues. Patient given prescriptions for Suboxone 8/2 mg SL BID # 30 and Narcan intranasal prn for overdose risks for pick-up in [facility]..
[2018-01-28] MEDS ORDERED: BUPRENORPHINE/NALOXONE 8 MG/2 MG FILM PACKET SL SCH (18:00)
[2018-01-29] MEDS ORDERED: BUPRENORPHINE/NALOXONE 8 MG/2 MG FILM PACKET SL SCH (06:00)
== END 2018-01-28 16:50 | disposition home or self-care (01) | DRG 772 ==
LOC: YASAS 16:16 → Y3N 21:21 → Y3W 21:51
PROVIDERS: ADMIT Psychiatry & Neurology Psychiatry; ATTEND Psychiatry & Neurology Psychiatry
PROC: HZ42ZZZ Group Counseling for Substance Abuse Treatment, Cognitive-Behavioral (ICD-10-PCS; principal; 2018-01-18)
DX: F11.20 Opioid dependence, uncomplicated (principal); F14.20 Cocaine dependence, uncomplicated; F12.20 Cannabis dependence, uncomplicated; F17.210 Nicotine dependence, cigarettes, uncomplicated; F19.24 Other psychoactive substance dependence with psychoactive substance-induced mood disorder; F41.9 Anxiety disorder, unspecified; H54.40 Blindness, one eye, unspecified eye; G35 Multiple sclerosis; R00.0 Tachycardia, unspecified; Z91.5 Personal history of self-harm
CPT/HCPCS: 36415; 80053; 81003; 85027; 86593; 87389

== ENCOUNTER 2019-03-22 13:39 | Inpatient (IN) | payer OTHER ==
--- NOTE | 2019-03-22 13:54 | BHS.RME ---
Substance Use & Tx History - Substance Use History Cannabis Substance amount: 2 blunt Frequency of use: Less than 3 times per week Substance route: Smoking Date of Last Use: 03/21/19 Cocaine (Powder) Substance amount: 1 gram Frequency of use: Daily Substance route: Inhalation (ex: sniffing or snorting) Date of Last Use: 03/21/19 Opiates (Heroin) Substance amount: 2 bags Frequency of use: Daily Substance route: Inhalation (ex: sniffing or snorting) Date of Last Use: 03/21/19 - Last Treatment Date of last treatment: 03/2018 Treatment type: Substance Use Disorder (RICKI) Where was last treatment: Rehab Physical/Psych/Mental Status - Behavior Eye Contact: Normal - Thinking Thought Processes: Tight, Logical, Goal Directed Thought content: Future oriented - Physical Health Problems Is patient presently having any pain?: No Does patient presently have any injuries (include location): No Does patient currently have a fever: No Is patient : No COWS - Scale Resting Pulse: 1= [place] 81-100 Sweatin=Flushed/Facial Moisture Restless Observation: 1= Difficult to Sit Still Pupil Size: 1= Pupils >than Normal Bone or Joint Aches: 2= Severe Diffuse Aches Runny Nose/ Eye Tearin= Runny Nose/Eyes GI Upset > 30mins: 2= Nausea/Diarrhea Tremor Observation: 2= Slight Tremor Visible Yawning Observation: 0= None Anxiety or Irritability: 1=Feels Anxious/Irritable Goose Flesh Skin: 0=Smooth Skin COWS Score: 14
[2019-03-22 15:11] VITALS: BMI 24.7
--- NOTE | 2019-03-22 15:28 | HP ---
COWS - Scale Resting Pulse: 1= [place] 81-100 Sweatin=Flushed/Facial Moisture Restless Observation: 1= Difficult to Sit Still Pupil Size: 1= Pupils >than Normal Bone or Joint Aches: 2= Severe Diffuse Aches Runny Nose/ Eye Tearin= Runny Nose/Eyes GI Upset > 30mins: 2= Nausea/Diarrhea Tremor Observation: 2= Slight Tremor Visible Yawning Observation: 0= None Anxiety or Irritability: 1=Feels Anxious/Irritable Goose Flesh Skin: 0=Smooth Skin COWS Score: 14 CIWA Score - Admission Criteria OASAS Guidelines: Admission for Medically Managed Detox: Requires at least one of the followin. CIWA greater than 12 2. Seizures within the past 24 hours 3. Delirium tremens within the past 24 hours 4. Hallucinations within the past 24 hours 5. Acute intervention needed for co occurring medical disorder 6. Acute intervention needed for co occurring psychiatric disorder 7. Severe withdrawal that cannot be handled at a lower level of care (continued vomiting, continued diarrhea, abnormal vital signs) requiring intravenous medication and/or fluids 8. Admitting History and Physical - Admission Chief Complaint: Mr. Prieto is a 48 yo gentleman who presents to [facility] requesting admission for detox from heroin. History of Present Illness: Mr. Prieto is a 48 yo gentleman who presents to [facility] requesting admission for detox from heroin. He relapsed about one week ago, was abstinent for 4 year prior. Last here in Mar 2015, had a fight on the floor and was asked to leave. PMH: MS, prior tx, now taking only medical marijuana, in [facility] 3 weeks ago for loss of vision tx with IV steroids Psych: 10 y ago: auditory hallucinations PSH: none SOC: undomiciled Substance use history Heroin: first use: age 22 y, last use yesterday, never on methadone. Quantity: 2 bags per day. Intranasal. no hx of OD. No Narcan cocaine: first use as a teen, last use yesterday, quantity: one gram daily, intranasal Marijuana: medical use Nicotine: 1ppd, began at age 15y, used today Denies: benzodiazepines - Smoking History Smoking history: Current every day smoker Have you smoked in the past 12 months: Yes Aproximately how many cigarettes per day: 20 - Alcohol/Substance Use Hx Alcohol Use: No Admission ROS BHS - HPI Allergies/Adverse Reactions: Allergies Allergy/AdvReac Type Severity Reaction Status Date / Time No Known Allergies Allergy Verified 03/22/19 15:05 - Ebola screening Have you traveled outside of the country in the last 21 days: No Have you had contact with anyone from an Ebola affected area: No Have you been sick,other than usual withdrawal symptoms: No Do you have a fever: No - Review of Systems Constitutional: No Symptoms Reported EENT: reports: Recent change in vision (admitted to [facility] for MS flair, loss of vision right eye) Respiratory: reports: No Symptoms reported Cardiac: reports: No Symptoms Reported GI: reports: Diarrhea, Nausea : reports: No Symptoms Reported Musculoskeletal: reports: Back Pain, Muscle Pain Neuro: reports: Other (left ring finger injury one week ago, cut at work, band aid on site) Endocrine: reports: No Symptoms Reported Hematology: reports: No Symptoms Reported Psychiatric: reports: No Sypmtoms Reported Patient History - Patient Medical History Hx Anemia: No Hx Asthma: No Hx Chronic Obstructive Pulmonary Disease (COPD): No Hx Cancer: No Hx Cardiac Disorders: No Hx Congestive Heart Failure: No Hx Hypertension: No Hx Hypercholesterolemia: No Hx Pacemaker: No HX Cerebrovascular Accident: No Hx Seizures: No Hx Dementia: No Hx Diabetes: No Hx Gastrointestinal Disorders: No Hx Liver Disease: No Hx Genitourinary Disorders: No Hx Sexually Transmitted Disorders: No Hx Renal Disease (ESRD): No Hx Thyroid Disease: No Hx Human Immunodeficiency Virus (HIV): No Hx Hepatitis C: No Hx Depression: No Hx Suicide Attempt: No Hx Bipolar Disorder: No Hx Schizophrenia: No Other Medical History: Multiple Sclerosis - Patient Surgical History Past Surgical History: No Hx Neurologic Surgery: No Hx Cataract Extraction: No Hx Cardiac Surgery: No Hx Lung Surgery: No Hx Breast Surgery: No Hx Breast Biopsy: No Hx Abdominal Surgery: No Hx Appendectomy: No Hx Cholecystectomy: No Hx Genitourinary Surgery: No Hx Section: No Hx Orthopedic Surgery: No Anesthesia Reaction: No - PPD History Previous Implant?: Yes Documented Results: Negative w/o proof Date: 01/21/18 - Smoking Cessation Smoking history: Current every day smoker Have you smoked in the past 12 months: Yes Aproximately how many cigarettes per day: 20 Cigars Per Day: 0 Hx Chewing Tobacco Use: No Initiated information on smoking cessation: Yes 'Breaking Loose' booklet given: 03/22/19 - Substances abused Heroin Substance route: Inhalation Frequency: Daily Amount used: 2 bags Age of first use: 21 Date of last use: 03/21/19 Cocaine Substance route: Inhalation Frequency: Daily Amount used: gram Age of first use: 15 Date of last use: 03/21/19 Marijuana/Hashish Substance route: Smoking Frequency: Daily Amount used: 3 grams Age of first use: 14 Date of last use: 03/22/19 Admission Physical Exam [facility] - Vital Signs Vital Signs: Vital Signs - 24 hr 03/22/19 15:06 Temperature 97.9 F Pulse Rate 100 H Respiratory 18 Rate Blood Pressure 139/89 - Physical General Appearance: Yes: Within Normal Limits HEENTM: Yes: Within Normal Limits Respiratory: Yes: Chest Non-Tender, Lungs Clear Neck: Yes: Within Normal Limits Breast: Yes: Breast Exam Deferred Cardiology: Yes: S1, S2, Tachycardia Abdominal: Yes: Normal Bowel Sounds, Non Tender, Flat, Soft Genitourinary: Yes: Other (deferred) Back: Yes: Normal Inspection Musculoskeletal: Yes: Within Normal Limits Extremities: Yes: Within Normal Limits Neurological: Yes: Fully Oriented, Alert, Normal Response Integumentary: Yes: Other (left ring finger with band aid dressing, dry) Lymphatic: Yes: Within Normal Limits Cleared for Admission [facility] - Detox or Rehab [facility] Level of Care: Medically Managed Breathalyzer - Breathalyzer Breathalyzer: 0 Urine Drug Screen - Results Urine drug screen results: THC-Marijuana, DANILO-Cocaine, MOP-Opiates Inpatient Rehab Admission - Rehab Decision to Admit Inpatient rehab admission?: No
[2019-03-22] MEDS ORDERED: METHOCARBAMOL 500 MG TABLET PO PRN (15:31)
[2019-03-22] MEDS ORDERED: hydrOXYzine PAMOATE 25 MG CAPSULE (FP) PO PRN (15:31)
[2019-03-22] MEDS ORDERED: ACETAMINOPHEN 325 MG TABLET (FP) PO PRN ×2 (15:31)
[2019-03-22] MEDS ORDERED: MAG HYDROX/AL HYDROX/SIMETH 30 ML UNIT-DOSE CUP PO PRN (15:31)
[2019-03-22] MEDS ORDERED: BISMUTH SUBSALICYLATE 524 MG/30 ML UD PO PRN (15:31)
[2019-03-22] MEDS ORDERED: cloNIDine HCL 0.1 MG TABLET PO PRN (15:31)
[2019-03-22] MEDS ORDERED: MAGNESIUM CITRATE 300 ML BOTTLE PO PRN (15:31)
[2019-03-22] MEDS ORDERED: MAGNESIUM HYDROX 2400MG/30ML ORAL SUSPENSION 30 ML CUP PO PRN (15:31)
[2019-03-22] MEDS ORDERED: MENTHOL/PHENOL 1 EACH UD MM PRN (15:31)
[2019-03-22] MEDS ORDERED: METHADONE HCL 10 MG TABLET (FOR DETOX USE ONLY) PO ONE (17:15)
[2019-03-22] MEDS: IBUPROFEN 400 MG TABLET (FP) PO PRN (17:23)
[2019-03-22] MEDS: NICOTINE 21 MG/24 HOURS TOPICAL PATCH TD SCH (17:26)
[2019-03-22] MEDS: THIAMINE HCL 100 MG TABLET (FP) PO SCH (22:14)
[2019-03-22] MEDS: MELATONIN 5 MG TABLETS PO PRN (22:15)
[2019-03-23] MEDS ORDERED: METHADONE HCL 10 MG TABLET (FOR DETOX USE ONLY) ONE (09:45)
[2019-03-23] MEDS ORDERED: METHADONE HCL 5 MG TABLET (FOR DETOX USE ONLY) ONE (09:45)
[2019-03-23 09:47] LABS: HEMATOCRIT 37.8 % (35.4-49); HEMOGLOBIN 12.4 GM/dL (11.7-16.9); MCH 29.2 pg (25.7-33.7); MCHC 32.9 g/dl (32.0-35.9); MEAN CELL VOLUME 88.9 fl (80-96); MEAN PLT VOLUME 8.3 fl (7.5-11.1); PLATELET COUNT 371 K/MM3 (134-434); RBC 4.25 M/mm3 (4.00-5.60); RDW 17.2 % (11.9-15.9); WHITE BLOOD COUNT 10.2 K/mm3 (4.0-10.0)
[2019-03-23] MEDS ORDERED: METHADONE (DETOX) 20 MG, METHADONE (DETOX) 5 MG PO ONE (10:00)
[2019-03-23 10:09] LABS: ALBUMIN 3.1 g/dl (3.4-5.0); BILIRUBIN,TOTAL 0.5 mg/dL (0.2-1); BLOOD UREA NITROGEN 19.2 mg/dL (7-18); CALCIUM 8.4 mg/dL (8.5-10.1); CREATININE 0.9 mg/dL (0.55-1.3); POTASSIUM 3.8 mmol/L (3.5-5.1); TOT PROT 5.5 g/dl (6.4-8.2)
[2019-03-23] MEDS: PRENATAL VITAMINS W/ FOLIC ACID TABLET (FP) PO SCH (11:53)
[2019-03-23] MEDS: NICOTINE 21 MG/24 HOURS TOPICAL PATCH TD SCH (11:54)
--- NOTE | 2019-03-23 12:59 | PN ---
BHS COWS - Scale Resting Pulse: 0= [place] 80 or Below Sweatin= No chills or Flushing Restless Observation: 1= Difficult to Sit Still Pupil Size: 1= Pupils >than Normal Bone or Joint Aches: 1= Mild Discomfort Runny Nose/ Eye Tearin= Nasal Congestion GI Upset > 30mins: 1= Stomach Cramp Tremor Observation of Outstretched Hands: 2= Slight Tremor Visible Yawning Observation: 1= 1-2x During Session Anxiety or Irritability: 2=Irritable/Anxious Goose Flesh Skin: 0=Smooth Skin COWS Score: 10 BHS Progress Note (SOAP) Subjective: alert,irritable,anxious,interrupted sleep,pain in the body and back Objective: 03/23/19 12:57 Vital Signs Temperature 98.6 F 03/23/19 09:00 Pulse Rate 71 03/23/19 09:00 Respiratory Rate 18 03/23/19 09:00 Blood Pressure 117/75 03/23/19 09:00 O2 Sat by Pulse Oximetry (%) Laboratory Last Values WBC 10.2 K/mm3 (4.0-10.0) H 03/23/19 07:30 RBC 4.25 M/mm3 (4.00-5.60) 03/23/19 07:30 Hgb 12.4 GM/dL (11.7-16.9) 03/23/19 07:30 Hct 37.8 % (35.4-49) 03/23/19 07:30 MCV 88.9 fl (80-96) 03/23/19 07:30 MCH 29.2 pg (25.7-33.7) 03/23/19 07:30 MCHC 32.9 g/dl (32.0-35.9) 03/23/19 07:30 RDW 17.2 % (11.9-15.9) H 03/23/19 07:30 Plt Count 371 K/MM3 (134-434) 03/23/19 07:30 MPV 8.3 fl (7.5-11.1) 03/23/19 07:30 Sodium 145 mmol/L (136-145) 03/23/19 07:30 Potassium 3.8 mmol/L (3.5-5.1) 03/23/19 07:30 Chloride 112 mmol/L (98-107) H 03/23/19 07:30 Carbon Dioxide 29 mmol/L (21-32) 03/23/19 07:30 Anion Gap 5 MMOL/L (8-16) L 03/23/19 07:30 BUN 19.2 mg/dL (7-18) H 03/23/19 07:30 Creatinine 0.9 mg/dL (0.55-1.3) 03/23/19 07:30 Est GFR (CKD-EPI)AfAm 116.65 03/23/19 07:30 Est GFR (CKD-EPI)NonAf 100.64 03/23/19 07:30 Random Glucose 89 mg/dL (74-106) 03/23/19 07:30 Calcium 8.4 mg/dL (8.5-10.1) L 03/23/19 07:30 Total Bilirubin 0.5 mg/dL (0.2-1) 03/23/19 07:30 AST 19 U/L (15-37) 03/23/19 07:30 ALT 18 U/L (13-61) 03/23/19 07:30 Alkaline Phosphatase 80 U/L (45-117) 03/23/19 07:30 Total Protein 5.5 g/dl (6.4-8.2) L 03/23/19 07:30 Albumin 3.1 g/dl (3.4-5.0) L 03/23/19 07:30 Assessment: 03/23/19 12:58 withdrawal symptom Plan: continue detox methadone regimen,dehydration,encourage fluid
[2019-03-23] MEDS: IBUPROFEN 400 MG TABLET (FP) PO PRN ×2 (13:02→18:41)
[2019-03-23] MEDS: THIAMINE HCL 100 MG TABLET (FP) PO SCH (22:25)
[2019-03-23] MEDS: MELATONIN 5 MG TABLETS PO PRN (22:25)
[2019-03-24] MEDS ORDERED: hydrOXYzine PAMOATE 25 MG CAPSULE (FP) PO PRN (09:18)
[2019-03-24] MEDS ORDERED: METHADONE HCL 10 MG TABLET (FOR DETOX USE ONLY) PO ONE (10:00)
[2019-03-24] MEDS: PRENATAL VITAMINS W/ FOLIC ACID TABLET (FP) PO SCH (10:09)
[2019-03-24] MEDS: NICOTINE 21 MG/24 HOURS TOPICAL PATCH TD SCH (10:10)
[2019-03-24] MEDS: clonazePAM 0.5 MG TABLET PO PRN ×2 (10:13→20:27)
--- NOTE | 2019-03-24 11:44 | PN ---
BHS COWS - Scale Resting Pulse: 1= [place] 81-100 Sweatin= Chills/Flushing Restless Observation: 1= Difficult to Sit Still Pupil Size: 0= Normal to Room Light Bone or Joint Aches: 1= Mild Discomfort Runny Nose/ Eye Tearin= Nasal Congestion GI Upset > 30mins: 2= Nausea/Diarrhea Tremor Observation of Outstretched Hands: 2= Slight Tremor Visible Yawning Observation: 0= None Anxiety or Irritability: 1=Feels Anxious/Irritable Goose Flesh Skin: 3=Piloerection COWS Score: 13 BHS Progress Note (SOAP) Subjective: pt states he still feels like he is in withdrawal- has some stomach upset. would like benadryl for sleep O: Vital Signs - 24 hr 03/23/19 03/23/19 03/24/19 13:45 20:36 00:11 Temperature 98.4 F 98.1 F Pulse Rate 74 60 Respiratory 19 18 16 Rate Blood Pressure 121/71 142/84 03/24/19 03/24/19 07:12 09:12 Temperature 98.1 F 98.1 F Pulse Rate 75 68 Respiratory 16 16 Rate Blood Pressure 107/62 109/78 Laboratory Tests 03/23/19 03/23/19 03/23/19 07:30 07:30 07:30 WBC 10.2 H RBC 4.25 Hgb 12.4 Hct 37.8 MCV 88.9 MCH 29.2 MCHC 32.9 RDW 17.2 H Plt Count 371 MPV 8.3 Sodium 145 Potassium 3.8 Chloride 112 H Carbon Dioxide 29 Anion Gap 5 L BUN 19.2 H Creatinine 0.9 Est GFR (CKD-EPI)AfAm 116.65 Est GFR (CKD-EPI)NonAf 100.64 Random Glucose 89 Calcium 8.4 L Total Bilirubin 0.5 AST 19 ALT 18 Alkaline Phosphatase 80 Total Protein 5.5 L Albumin 3.1 L RPR Titer Nonreactive ess nl labs a/p OUD- continue methadone detox protocol, pt has prn meds for Sx treatment benadryl X1 for sleep
[2019-03-24] MEDS ORDERED: diphenhydrAMINE HCL 25 MG CAPSULE (FP) PO ONE (20:09)
[2019-03-24] MEDS: IBUPROFEN 400 MG TABLET (FP) PO PRN (20:27)
[2019-03-24] MEDS ORDERED: diphenhydrAMINE HCL 50 MG CAPSULE PO SCH (22:00)
[2019-03-24] MEDS: THIAMINE HCL 100 MG TABLET (FP) PO SCH (22:04)
--- NOTE | 2019-03-25 09:47 | PN ---
BHS COWS - Scale Resting Pulse: 1= [place] 81-100 Sweatin= No chills or Flushing Restless Observation: 1= Difficult to Sit Still Pupil Size: 0= Normal to Room Light Bone or Joint Aches: 1= Mild Discomfort Runny Nose/ Eye Tearin= Nasal Congestion GI Upset > 30mins: 0= None Tremor Observation of Outstretched Hands: 0= None Yawning Observation: 1= 1-2x During Session Anxiety or Irritability: 0= None Goose Flesh Skin: 0=Smooth Skin COWS Score: 5 BHS Progress Note (SOAP) Subjective: pt states feeling better, requesting ensure. O: Vital Signs - 24 hr 03/24/19 03/24/19 03/24/19 13:06 16:19 20:22 Temperature 97.7 F 97.9 F 98.1 F Pulse Rate 71 62 64 Respiratory 16 18 18 Rate Blood Pressure 119/78 120/78 108/68 03/25/19 03/25/19 03/25/19 00:39 04:17 05:09 Temperature 98.1 F Pulse Rate 62 Respiratory 18 18 18 Rate Blood Pressure 102/59 L 03/25/19 09:37 Temperature 98.2 F Pulse Rate 71 Respiratory 17 Rate Blood Pressure 127/72 Laboratory Tests 03/23/19 03/23/19 03/23/19 07:30 07:30 07:30 WBC 10.2 H RBC 4.25 Hgb 12.4 Hct 37.8 MCV 88.9 MCH 29.2 MCHC 32.9 RDW 17.2 H Plt Count 371 MPV 8.3 Sodium 145 Potassium 3.8 Chloride 112 H Carbon Dioxide 29 Anion Gap 5 L BUN 19.2 H Creatinine 0.9 Est GFR (CKD-EPI)AfAm 116.65 Est GFR (CKD-EPI)NonAf 100.64 Random Glucose 89 Calcium 8.4 L Total Bilirubin 0.5 AST 19 ALT 18 Alkaline Phosphatase 80 Total Protein 5.5 L Albumin 3.1 L RPR Titer Nonreactive a/p: OUD- continue detox protocol, ensure ordered to discuss with counselor re half-way MAT
[2019-03-25] MEDS ORDERED: METHADONE HCL 10 MG TABLET (FOR DETOX USE ONLY) ONE (09:55)
[2019-03-25] MEDS ORDERED: METHADONE HCL 5 MG TABLET (FOR DETOX USE ONLY) ONE (09:55)
[2019-03-25] MEDS ORDERED: METHADONE (DETOX) 10 MG, METHADONE (DETOX) 5 MG PO ONE (10:00)
[2019-03-25] MEDS: NICOTINE 21 MG/24 HOURS TOPICAL PATCH TD SCH (10:34)
[2019-03-25] MEDS: PRENATAL VITAMINS W/ FOLIC ACID TABLET (FP) PO SCH (10:34)
[2019-03-25] MEDS: IBUPROFEN 400 MG TABLET (FP) PO PRN (12:42)
[2019-03-25] MEDS: clonazePAM 0.5 MG TABLET PO PRN ×2 (12:42→19:04)
[2019-03-25] MEDS: THIAMINE HCL 100 MG TABLET (FP) PO SCH (22:08)
[2019-03-25] MEDS: MELATONIN 5 MG TABLETS PO PRN (22:09)
[2019-03-26] MEDS ORDERED: METHADONE HCL 10 MG TABLET (FOR DETOX USE ONLY) PO ONE (10:00)
[2019-03-26] MEDS: PRENATAL VITAMINS W/ FOLIC ACID TABLET (FP) PO SCH (10:17)
[2019-03-26] MEDS: IBUPROFEN 400 MG TABLET (FP) PO PRN ×2 (10:18→16:53)
[2019-03-26] MEDS: NICOTINE 21 MG/24 HOURS TOPICAL PATCH TD SCH (10:20)
[2019-03-26] MEDS: clonazePAM 0.5 MG TABLET PO PRN ×2 (10:31→16:53)
--- NOTE | 2019-03-26 10:59 | PN ---
BHS COWS - Scale Resting Pulse: 0= SD 80 or Below Sweatin= No chills or Flushing Restless Observation: 1= Difficult to Sit Still Pupil Size: 0= Normal to Room Light Bone or Joint Aches: 1= Mild Discomfort Runny Nose/ Eye Tearin= None GI Upset > 30mins: 0= None Tremor Observation of Outstretched Hands: 0= None Yawning Observation: 0= None Anxiety or Irritability: 2=Irritable/Anxious Goose Flesh Skin: 0=Smooth Skin COWS Score: 4 BHS Progress Note (SOAP) Subjective: Patient c/o anxiety, mild restlessness, feeling tired and poor sleep. Requested Benadryl for insomnia. Objective: 03/26/19 10:57 Vital Signs Temperature 97 F L 03/26/19 05:09 Pulse Rate 58 L 03/26/19 05:09 Respiratory Rate 18 03/26/19 05:09 Blood Pressure 107/68 03/26/19 05:09 O2 Sat by Pulse Oximetry (%) Laboratory Tests 03/23/19 03/23/19 03/23/19 07:30 07:30 07:30 WBC 10.2 H RBC 4.25 Hgb 12.4 Hct 37.8 MCV 88.9 MCH 29.2 MCHC 32.9 RDW 17.2 H Plt Count 371 MPV 8.3 Sodium 145 Potassium 3.8 Chloride 112 H Carbon Dioxide 29 Anion Gap 5 L BUN 19.2 H Creatinine 0.9 Est GFR (CKD-EPI)AfAm 116.65 Est GFR (CKD-EPI)NonAf 100.64 Random Glucose 89 Calcium 8.4 L Total Bilirubin 0.5 AST 19 ALT 18 Alkaline Phosphatase 80 Total Protein 5.5 L Albumin 3.1 L RPR Titer Nonreactive alert and oriented x 3 skin warm and dry in nad +perrla, eoms intact bl ext full rom, amb ad edwin mildly restless Assessment: 03/26/19 10:58 opiod withdrawal sx Plan: continue detox benadryl 25mg hs for d/c in am
[2019-03-26] MEDS ORDERED: diphenhydrAMINE HCL 25 MG CAPSULE (FP) PO SCH (22:00)
[2019-03-26] MEDS: THIAMINE HCL 100 MG TABLET (FP) PO SCH (22:18)
[2019-03-27] MEDS: clonazePAM 0.5 MG TABLET PO PRN ×2 (05:30→11:40)
[2019-03-27] MEDS ORDERED: METHADONE HCL 5 MG TABLET (FOR DETOX USE ONLY) PO ONE (06:00)
[2019-03-27] MEDS: NICOTINE 21 MG/24 HOURS TOPICAL PATCH TD SCH (11:10)
[2019-03-27] MEDS: PRENATAL VITAMINS W/ FOLIC ACID TABLET (FP) PO SCH (11:10)
--- NOTE | 2019-03-27 11:35 | DS ---
[facility] Detox Discharge Summary Admission Date: 03/22/19 Discharge Date: 03/27/19 - History Present History: Alcohol Dependence, Cocaine Dependence, Opioid Dependence Additional Comments: alert,orient x3 ambulation on the unit heart normal heart sound lung clear bilaterally no abdominal pain stable for discharge to [facility] [place] [facility] discharge time 30 mins Pertinent Past History: blindness of right eye multiple slerosis - Physical Exam Results Vital Signs: Vital Signs Temperature 97.5 F L 03/27/19 02:00 Pulse Rate 75 03/27/19 02:00 Respiratory Rate 16 03/27/19 03:29 Blood Pressure 121/64 03/27/19 02:00 O2 Sat by Pulse Oximetry (%) Pertinent Admission Physical Exam Findings: withdrawal signs and symptom Laboratory Last Values WBC 10.2 K/mm3 (4.0-10.0) H 03/23/19 07:30 RBC 4.25 M/mm3 (4.00-5.60) 03/23/19 07:30 Hgb 12.4 GM/dL (11.7-16.9) 03/23/19 07:30 Hct 37.8 % (35.4-49) 03/23/19 07:30 MCV 88.9 fl (80-96) 03/23/19 07:30 MCH 29.2 pg (25.7-33.7) 03/23/19 07:30 MCHC 32.9 g/dl (32.0-35.9) 03/23/19 07:30 RDW 17.2 % (11.9-15.9) H 03/23/19 07:30 Plt Count 371 K/MM3 (134-434) 03/23/19 07:30 MPV 8.3 fl (7.5-11.1) 03/23/19 07:30 Sodium 145 mmol/L (136-145) 03/23/19 07:30 Potassium 3.8 mmol/L (3.5-5.1) 03/23/19 07:30 Chloride 112 mmol/L (98-107) H 03/23/19 07:30 Carbon Dioxide 29 mmol/L (21-32) 03/23/19 07:30 Anion Gap 5 MMOL/L (8-16) L 03/23/19 07:30 BUN 19.2 mg/dL (7-18) H 03/23/19 07:30 Creatinine 0.9 mg/dL (0.55-1.3) 03/23/19 07:30 Est GFR (CKD-EPI)AfAm 116.65 03/23/19 07:30 Est GFR (CKD-EPI)NonAf 100.64 03/23/19 07:30 Random Glucose 89 mg/dL (74-106) 03/23/19 07:30 Calcium 8.4 mg/dL (8.5-10.1) L 03/23/19 07:30 Total Bilirubin 0.5 mg/dL (0.2-1) 03/23/19 07:30 AST 19 U/L (15-37) 03/23/19 07:30 ALT 18 U/L (13-61) 03/23/19 07:30 Alkaline Phosphatase 80 U/L (45-117) 03/23/19 07:30 Total Protein 5.5 g/dl (6.4-8.2) L 03/23/19 07:30 Albumin 3.1 g/dl (3.4-5.0) L 03/23/19 07:30 RPR Titer Nonreactive (NONREACTIVE) 03/23/19 07:30 - Treatment Hospital Course: Detox Protocol Followed, Detoxed Safely, Responded well, Discharged Condition Good, Rehab Referral Accepted Patient has Accepted a [facility] Referral [facility]: [facility] - Medication Discharge Medications: Ambulatory Orders NK [No Known Home Medication] 03/22/19 - Diagnosis (1) Opioid dependence Current Visit: No Status: Chronic (2) Opioid dependence with withdrawal Current Visit: No Status: Acute (3) Blindness of right eye Current Visit: No Status: Chronic (4) Cannabis dependence Current Visit: No Status: Chronic (5) Cocaine dependence Current Visit: No Status: Chronic (6) Nicotine dependence Current Visit: No Status: Chronic Qualifiers: Nicotine product type: cigarettes Substance use status: uncomplicated Qualified Code(s): F17.210 - Nicotine dependence, cigarettes, uncomplicated - AMA Did Patient Leave Against Medical Advice: No
--- NOTE | 2019-03-27 11:35 | PN ---
BHS COWS - Scale Resting Pulse: 0= NM 80 or Below Sweatin= No chills or Flushing Restless Observation: 0= Sits Still Pupil Size: 0= Normal to Room Light Bone or Joint Aches: 1= Mild Discomfort Runny Nose/ Eye Tearin= None GI Upset > 30mins: 0= None Tremor Observation of Outstretched Hands: 0= None Yawning Observation: 0= None Anxiety or Irritability: 0= None Goose Flesh Skin: 0=Smooth Skin COWS Score: 1 S Progress Note (SOAP) Subjective: alert,no complaint Objective: 03/27/19 11:32 Vital Signs Temperature 97.5 F L 03/27/19 02:00 Pulse Rate 75 03/27/19 02:00 Respiratory Rate 16 03/27/19 03:29 Blood Pressure 121/64 03/27/19 02:00 O2 Sat by Pulse Oximetry (%) Assessment: 03/27/19 11:33 detox completed,no withdrawal symptom,stable to go to [address]
--- NOTE | 2019-03-27 11:49 | HP ---
[facility] Rehab Assess/Revision - Admission History Admitted to Rehab from: [facility] [address] Date of Admission to Rehab: 03/27/2019 - Vital signs Vital Signs: Vital Signs Period Temp Pulse Resp BP Sys/Patterson Pulse Ox Last 24 Hr 97.1 F-99.3 F 75-81 16-18 117-121/64-79 - Findings Detox History & Physical reviewed: Yes Concur with findings: Yes Comments/Additional Findings: for revalation as protocol Inpatient Rehab Admission - Rehab Decision to Admit Inpatient rehab admission?: Yes - Initial Determination Are CD services needed?: Yes Free of communicable disease: Yes Not in need of hospitalization: Yes - Rehab Admission Criteria Previous failed treatment: Yes Poor recovery environment: Yes Comorbidities: Yes Lacks judgement: No Patient is meeting Inpatient Rehab admission criteria:: Yes
[2019-03-27 14:11] VITALS: BP 141/61; PULSE 85; TEMP 98.8
== END 2019-03-27 17:00 | disposition other institution (70) | DRG 773 ==
LOC: YASAS 13:39 → Y6N 15:45
PROVIDERS: ADMIT Allergy & Immunology; ATTEND Allergy & Immunology
PROC: HZ2ZZZZ Detoxification Services for Substance Abuse Treatment (ICD-10-PCS; principal; 2019-03-22)
DX: F11.23 Opioid dependence with withdrawal (principal); F14.20 Cocaine dependence, uncomplicated; F17.210 Nicotine dependence, cigarettes, uncomplicated; G35 Multiple sclerosis; H54.61 Unqualified visual loss, right eye, normal vision left eye
CPT/HCPCS: 36415; 80053; 85027; 86593; J0735

== ENCOUNTER 2019-03-27 17:06 | Inpatient (IN) | payer OTHER ==
[2019-03-27] MEDS ORDERED: MENTHOL/PHENOL 1 EACH UD MM PRN (18:08)
[2019-03-27] MEDS ORDERED: P-EPHED 60MG/TRIPROLIDI 2.5MG TABLET PO PRN (18:08)
[2019-03-27] MEDS ORDERED: MAGNESIUM HYDROX 2400MG/30ML ORAL SUSPENSION 30 ML CUP PO PRN (18:08)
[2019-03-27] MEDS ORDERED: guaiFENesin 200 MG/10 ML 10 ML UNIT-DOSE CUPS PO PRN (18:08)
[2019-03-27] MEDS ORDERED: LOPERAMIDE HCL 2 MG CAPSULE PO PRN (18:08)
[2019-03-27] MEDS ORDERED: IBUPROFEN 400 MG TABLET (FP) PO PRN (18:08)
[2019-03-27] MEDS ORDERED: MAGNESIUM CITRATE 300 ML BOTTLE PO PRN (18:08)
[2019-03-27] MEDS ORDERED: ACETAMINOPHEN 325 MG TABLET (FP) PO PRN (18:08)
[2019-03-27] MEDS ORDERED: MAG HYDROX/AL HYDROX/SIMETH 30 ML UNIT-DOSE CUP PO PRN (18:08)
[2019-03-27] MEDS: THIAMINE HCL 100 MG TABLET (FP) PO SCH (21:29)
[2019-03-27] MEDS ORDERED: MELATONIN 5 MG TABLETS PO PRN (22:00)
[2019-03-28] MEDS: PRENATAL VITAMINS W/ FOLIC ACID TABLET (FP) PO SCH (10:00)
--- NOTE | 2019-03-28 11:42 | HP ---
[facility] Rehab Assess/Revision - Admission History Admitted to Rehab from: [address] Date of Admission to Rehab: 03/27/19 - Vital signs Vital Signs: Vital Signs Period Temp Pulse Resp BP Sys/Patterson Pulse Ox Last 24 Hr 98.7 F 74 18- 103/63 - Findings Detox History & Physical reviewed: Yes Concur with findings: Yes Comments/Additional Findings: Pt is a 48 y/o male with a hx of RICKI-Heroin, cocaine,marijuana(reports medical marijuana) admitted to rehab from [address] [place] [address] on . PMHx:MS,Neuritis, Chronic lower leg pain. Recent Left Mid finger laceration due to fall on intoxication. Psych Hx:Depression-has been on Respiradal,Seroquel,zoloft about 10 years ago. PSHx:denies. Pt reports he has a primary care provider, Dr. Kip De Luna on [address] [facility]. Pt reports he has been noncompliant with his doctor's visits due to 'busy with the drug use and has been here and there" but thinks he has appointment this month of March. Pt states will call his aunt at home to check on his calender at home. Alert o x 3, denies s/h/i. nad. oob ambulating with steady gait with a cane. extremities/skin:no edema;skin intact. Inpatient Rehab Admission - Rehab Decision to Admit Inpatient rehab admission?: Yes - Initial Determination Are CD services needed?: Yes Free of communicable disease: Yes Not in need of hospitalization: Yes - Rehab Admission Criteria Previous failed treatment: Yes Poor recovery environment: Yes Comorbidities: Yes Lacks judgement: Yes Patient is meeting Inpatient Rehab admission criteria:: Yes
[2019-03-28] MEDS ORDERED: NICOTINE POLACRILEX 4 MG GUM BUC PRN (11:47)
[2019-03-28] MEDS ORDERED: hydrOXYzine PAMOATE 50 MG CAPSULE (FP) PO PRN ×2 (11:48→12:09)
[2019-03-28] MEDS: NICOTINE 21 MG/24 HOURS TOPICAL PATCH TD SCH (14:00)
[2019-03-28] MEDS: MELATONIN 5 MG TABLETS PO PRN (21:34)
[2019-03-28] MEDS: THIAMINE HCL 100 MG TABLET (FP) PO SCH (21:34)
--- NOTE | 2019-03-29 09:14 | CONSULT ---
[facility] Psychiatric Consult - Data Date of interview: 03/29/19 Admission source: 6N Identifying data: Mr Prieto is a 48 years old male, father of 2 children, unemployed receiving SSI, domiciled admitted from detox on for inpatient rehabilitation for opioid, cocaine Substance Abuse History: Reports history of heroin, cocaine and medical marijuana use. Refer to addiction counselor's summary for further information Medical History: Significant for multiple sclerosis and blindness in right eye ( since 2009). Smokes cigarettes 1 ppd Psychiatric History: Patient came to office for interview. As he was being asked questions regarding his psychiatric history, he got very irritable, angry , hosile toward automobile and property underwriter for repeating himself and said:" Let just end this. I don't want to be seen". He got up and left the office
[2019-03-29] MEDS: PRENATAL VITAMINS W/ FOLIC ACID TABLET (FP) PO SCH (10:33)
[2019-03-29] MEDS: NICOTINE 21 MG/24 HOURS TOPICAL PATCH TD SCH (10:33)
--- NOTE | 2019-03-29 11:04 | PN ---
[facility] Progress Note Note: This investment underwriter called pt's pharmacy and verified his current medications which was last filled on 03/03/19 per [facility] pharmacist on [address] [place] [address]. . Pt denied hx of Asthma but states he takes the pumps "because I get short of breath". Combivent inh 2 puffs BID Albuterol Inh. 2 puffs Q4H prn Cyclobenzaprine 10 mg po BID Gabapentin 600 mg po TID Nicotin patch 14 mg TD daily Vital Signs - 24 hr 03/29/19 03/29/19 03/29/19 00:30 03:25 07:01 Temperature 98.2 F Pulse Rate 86 Respiratory 18 18 16 Rate Blood Pressure 98/69 Will reorder pt's meds as verified.
[2019-03-29] MEDS: GABAPENTIN 300 MG CAPSULE PO SCH ×2 (14:20→21:37)
[2019-03-29] MEDS: THIAMINE HCL 100 MG TABLET (FP) PO SCH (21:34)
[2019-03-29] MEDS: BUDESONIDE/FORMETEROL FUMARATE 80/4.5 mcg INHALER IH SCH (21:36)
[2019-03-29] MEDS: CYCLOBENZAPRINE HCL 10 MG TABLET (FP) PO PRN (21:37)
[2019-03-29] MEDS ORDERED: CYCLOBENZAPRINE HCL 10 MG TABLET (FP) PO SCH (22:00)
[2019-03-30] MEDS: GABAPENTIN 300 MG CAPSULE PO SCH ×3 (06:28→21:32)
[2019-03-30] MEDS: PRENATAL VITAMINS W/ FOLIC ACID TABLET (FP) PO SCH (10:31)
[2019-03-30] MEDS: NICOTINE 21 MG/24 HOURS TOPICAL PATCH TD SCH (10:31)
[2019-03-30] MEDS: BUDESONIDE/FORMETEROL FUMARATE 80/4.5 mcg INHALER IH SCH ×2 (10:32→21:31)
--- NOTE | 2019-03-30 11:10 | PN ---
BHS COWS - Scale Resting Pulse: 1= VA 81-100 Sweatin= No chills or Flushing Restless Observation: 0= Sits Still Pupil Size: 0= Normal to Room Light Bone or Joint Aches: 4=Acute Joint/Muscle Pain Runny Nose/ Eye Tearin= Runny Nose/Eyes GI Upset > 30mins: 2= Nausea/Diarrhea (diarrhea but no nausea) Tremor Observation of Outstretched Hands: 0= None Yawning Observation: 0= None Anxiety or Irritability: 2=Irritable/Anxious Goose Flesh Skin: 0=Smooth Skin COWS Score: 11 S Progress Note (SOAP) Subjective: Requesting Suboxone Objective: 03/30/19 11:29 Vital Signs - 24 hr 03/30/19 03/30/19 00:30 07:09 Temperature 97.7 F Pulse Rate 84 Respiratory 18 18 Rate Blood Pressure 104/68 URINE DRUG SCREEN RESULTS Drug Screen Negative No Urine Drug Screen Results MTD-Methadone COWS Score:11 Alert o x 3,denies s/h/i nad oob ambulating with steady gait cardiac:s1 s2, rrr lungs:cta,matt. abdomen:+bs,soft,nt,nd extremities/skin:no edema, skin intact. Assessment: 03/30/19 11:30 RICKI-Heroin Plan: UDS done today(see UDS result) To re-evaluate in AM for starting Suboxone. d/w pt to follow met with counselor to set up aftercare location for continuation of care/Suboxone MAT after discharge. [facility] [place] [facility] are possible referrals explored.
[2019-03-30] MEDS: THIAMINE HCL 100 MG TABLET (FP) PO SCH (21:32)
[2019-03-30] MEDS: CYCLOBENZAPRINE HCL 10 MG TABLET (FP) PO PRN (21:32)
[2019-03-30] MEDS: MELATONIN 5 MG TABLETS PO PRN (21:32)
[2019-03-31] MEDS: GABAPENTIN 300 MG CAPSULE PO SCH ×3 (06:30→21:23)
[2019-03-31] MEDS: NICOTINE 21 MG/24 HOURS TOPICAL PATCH TD SCH (10:23)
[2019-03-31] MEDS: BUDESONIDE/FORMETEROL FUMARATE 80/4.5 mcg INHALER IH SCH ×2 (10:23→21:24)
[2019-03-31] MEDS: PRENATAL VITAMINS W/ FOLIC ACID TABLET (FP) PO SCH (10:23)
[2019-03-31] MEDS ORDERED: BUPRENORPHINE/NALOXONE 2 MG/0.5 MG FILM PACKET SL ONE (11:20)
--- NOTE | 2019-03-31 11:28 | PN ---
BHS COWS - Scale Resting Pulse: 1= DC 81-100 Sweatin= No chills or Flushing Restless Observation: 0= Sits Still Pupil Size: 0= Normal to Room Light Bone or Joint Aches: 1= Mild Discomfort Runny Nose/ Eye Tearin= Nasal Congestion GI Upset > 30mins: 2= Nausea/Diarrhea (no nausea but diarrhea) Tremor Observation of Outstretched Hands: 0= None Yawning Observation: 0= None Anxiety or Irritability: 2=Irritable/Anxious Goose Flesh Skin: 0=Smooth Skin COWS Score: 7 BHS Progress Note (SOAP) Subjective: Pt requesting to start suboxone while in Rehab to continue in aftercare upon discharge. Objective: 03/31/19 11:30 Vital Signs - 24 hr 03/31/19 03/31/19 03/31/19 00:30 03:30 07:13 Temperature 98.8 F Pulse Rate 81 Respiratory 16 16 18 Rate Blood Pressure 116/74 Alert o x 3,denies s/h/i nad oob ambulating with steady gait Assessment: 03/31/19 11:31 RICKI-heroin s/p detox residual w/s Pt requesting for Suboxone MAT Plan: D/w pt Will start 2 mg/0.5 mg sl once now, then BID@1000,2200 Follow up with patient and evaluate for future adjustments as tolerated. Pt is agreeable to poc.
[2019-03-31] MEDS: CYCLOBENZAPRINE HCL 10 MG TABLET (FP) PO PRN ×2 (14:26→21:25)
[2019-03-31] MEDS: THIAMINE HCL 100 MG TABLET (FP) PO SCH (21:23)
[2019-03-31] MEDS: BUPRENORPHINE/NALOXONE 2 MG/0.5 MG FILM PACKET SL SCH (21:23)
[2019-03-31] MEDS: MELATONIN 5 MG TABLETS PO PRN (21:24)
[2019-04-01] MEDS: GABAPENTIN 300 MG CAPSULE PO SCH ×3 (06:02→21:56)
[2019-04-01] MEDS: ALBUTEROL SO4 HFA INHALER IH PRN (08:44)
[2019-04-01] MEDS: NICOTINE 21 MG/24 HOURS TOPICAL PATCH TD SCH (10:11)
[2019-04-01] MEDS: PRENATAL VITAMINS W/ FOLIC ACID TABLET (FP) PO SCH (10:11)
[2019-04-01] MEDS: BUDESONIDE/FORMETEROL FUMARATE 80/4.5 mcg INHALER IH SCH ×2 (10:11→21:56)
[2019-04-01] MEDS: BUPRENORPHINE/NALOXONE 2 MG/0.5 MG FILM PACKET SL SCH ×2 (10:12→21:56)
[2019-04-01] MEDS: CYCLOBENZAPRINE HCL 10 MG TABLET (FP) PO PRN (21:56)
[2019-04-01] MEDS: THIAMINE HCL 100 MG TABLET (FP) PO SCH (21:56)
[2019-04-02] MEDS: GABAPENTIN 300 MG CAPSULE PO SCH ×3 (06:15→21:45)
[2019-04-02] MEDS: BUDESONIDE/FORMETEROL FUMARATE 80/4.5 mcg INHALER IH SCH ×2 (09:53→21:45)
[2019-04-02] MEDS: PRENATAL VITAMINS W/ FOLIC ACID TABLET (FP) PO SCH (09:53)
[2019-04-02] MEDS: NICOTINE 21 MG/24 HOURS TOPICAL PATCH TD SCH (09:53)
[2019-04-02] MEDS: BUPRENORPHINE/NALOXONE 2 MG/0.5 MG FILM PACKET SL SCH ×2 (09:55→21:45)
[2019-04-02] MEDS: THIAMINE HCL 100 MG TABLET (FP) PO SCH (21:45)
[2019-04-02] MEDS: MELATONIN 5 MG TABLETS PO PRN (21:46)
[2019-04-03] MEDS: GABAPENTIN 300 MG CAPSULE PO SCH ×3 (05:55→21:24)
[2019-04-03] MEDS: PRENATAL VITAMINS W/ FOLIC ACID TABLET (FP) PO SCH (10:33)
[2019-04-03] MEDS: BUPRENORPHINE/NALOXONE 2 MG/0.5 MG FILM PACKET SL SCH (10:33)
[2019-04-03] MEDS: BUDESONIDE/FORMETEROL FUMARATE 80/4.5 mcg INHALER IH SCH ×2 (10:33→21:24)
[2019-04-03] MEDS: NICOTINE 21 MG/24 HOURS TOPICAL PATCH TD SCH (10:33)
--- NOTE | 2019-04-03 15:12 | PN ---
S Progress Note Note: pt requests suboxone increase today. c/o sweats. Pt c/o dry, rash in groin area and requests for Aveeno soap. Denies itch declines Tinactin cream. Vital Signs - 24 hr 04/03/19 04/03/19 03:39 07:40 Temperature 97.6 F Pulse Rate 76 Respiratory 18 18 Rate Blood Pressure 93/56 L A/P suboxone MAT Dry skin increase suboxone 4 mg/1mg sl BID as directed today. Aveeno soap
[2019-04-03] MEDS ORDERED: COLLOIDAL OATMEAL 1 BAR EACH TP PRN (15:13)
[2019-04-03] MEDS: MINERAL OIL/PETROLAT/WATER TOPICAL CREAM 113 GM JAR TP SCH (18:29)
[2019-04-03] MEDS: BUPRENORPHINE/NALOXONE 4 MG/1 MG FILM PACKET SL SCH (18:30)
[2019-04-03] MEDS: CYCLOBENZAPRINE HCL 10 MG TABLET (FP) PO PRN (21:24)
[2019-04-03] MEDS: THIAMINE HCL 100 MG TABLET (FP) PO SCH (21:25)
[2019-04-03] MEDS: MELATONIN 5 MG TABLETS PO PRN (21:25)
[2019-04-04] MEDS: GABAPENTIN 300 MG CAPSULE PO SCH ×3 (06:24→21:07)
[2019-04-04] MEDS: BUPRENORPHINE/NALOXONE 4 MG/1 MG FILM PACKET SL SCH (06:24)
[2019-04-04] MEDS: NICOTINE 21 MG/24 HOURS TOPICAL PATCH TD SCH (10:30)
[2019-04-04] MEDS: BUDESONIDE/FORMETEROL FUMARATE 80/4.5 mcg INHALER IH SCH ×2 (10:30→21:08)
[2019-04-04] MEDS: PRENATAL VITAMINS W/ FOLIC ACID TABLET (FP) PO SCH (10:30)
[2019-04-04] MEDS: MINERAL OIL/PETROLAT/WATER TOPICAL CREAM 113 GM JAR TP SCH (10:31)
--- NOTE | 2019-04-04 15:03 | PN ---
BHS Progress Note Note: Pt requests Suboxone increase d/t w/s. Irritability, sweats. Vital Signs - 24 hr 04/04/19 04/04/19 04/04/19 00:30 03:30 07:43 Temperature 97.7 F Pulse Rate 86 Respiratory 16 16 16 Rate Blood Pressure 107/65 alert o x 3 nad oob ambulating with steady gait Increase Suboxone 8 mg/2mg sl BID @ 0600,1800 stating today.
[2019-04-04] MEDS: BUPRENORPHINE/NALOXONE 8 MG/2 MG FILM PACKET SL SCH (17:53)
[2019-04-04] MEDS: CYCLOBENZAPRINE HCL 10 MG TABLET (FP) PO PRN (21:07)
[2019-04-04] MEDS: MELATONIN 5 MG TABLETS PO PRN (21:08)
[2019-04-04] MEDS: THIAMINE HCL 100 MG TABLET (FP) PO SCH (21:09)
[2019-04-05] MEDS: BUPRENORPHINE/NALOXONE 8 MG/2 MG FILM PACKET SL SCH ×2 (05:57→17:28)
[2019-04-05] MEDS: GABAPENTIN 300 MG CAPSULE PO SCH ×3 (05:58→21:22)
[2019-04-05] MEDS: PRENATAL VITAMINS W/ FOLIC ACID TABLET (FP) PO SCH (09:59)
[2019-04-05] MEDS: NICOTINE 21 MG/24 HOURS TOPICAL PATCH TD SCH (10:00)
[2019-04-05] MEDS: BUDESONIDE/FORMETEROL FUMARATE 80/4.5 mcg INHALER IH SCH ×2 (10:04→21:22)
[2019-04-05] MEDS: MINERAL OIL/PETROLAT/WATER TOPICAL CREAM 113 GM JAR TP SCH (10:04)
[2019-04-05] MEDS: CYCLOBENZAPRINE HCL 10 MG TABLET (FP) PO PRN ×2 (18:19→21:22)
[2019-04-05] MEDS: MELATONIN 5 MG TABLETS PO PRN (21:23)
[2019-04-05] MEDS: THIAMINE HCL 100 MG TABLET (FP) PO SCH (21:23)
[2019-04-06] MEDS: GABAPENTIN 300 MG CAPSULE PO SCH ×3 (06:17→21:14)
[2019-04-06] MEDS: BUPRENORPHINE/NALOXONE 8 MG/2 MG FILM PACKET SL SCH ×2 (06:18→17:48)
[2019-04-06] MEDS: ALBUTEROL SO4 HFA INHALER IH PRN (06:19)
[2019-04-06] MEDS: MINERAL OIL/PETROLAT/WATER TOPICAL CREAM 113 GM JAR TP SCH (10:07)
[2019-04-06] MEDS: BUDESONIDE/FORMETEROL FUMARATE 80/4.5 mcg INHALER IH SCH ×2 (10:08→21:13)
[2019-04-06] MEDS: NICOTINE 21 MG/24 HOURS TOPICAL PATCH TD SCH (10:08)
[2019-04-06] MEDS: PRENATAL VITAMINS W/ FOLIC ACID TABLET (FP) PO SCH (10:09)
--- NOTE | 2019-04-06 16:07 | DS ---
[facility] Rehab Discharge Summary - [facility] Rehab Discharge Summary Admission Date: 03/27/19 Discharge Date: 04/07/19 - History Present History: Cannabis dependence, Cocaine dependence, Opioid dependence Additional Comments: Pt is a 48 y/o male with a hx of RICKI admitted to rehab and requesting early discharge on 04/07/19 for family errands and to go for follow up with CD aftercare referral at [facility]. Pt reports he has a primary care provider, Dr. Kip De Luna on [address] [facility]. Pertinent Past History: Multiple Sclerosis Neuritis Chronic lower leg pain Recent Left Mid finger laceration due to fall on intoxication. Depression - Discharge Physical Exam Vital Signs: Vital Signs Temperature 97.2 F L 04/06/19 05:30 Pulse Rate 81 04/06/19 05:30 Respiratory Rate 18 04/06/19 05:30 Blood Pressure 126/83 04/06/19 05:30 O2 Sat by Pulse Oximetry (%) Pertinent Admission Physical Exam Findings: Laboratory Tests 04/04/19 08:20 HIV 1&2 Ag/Ab, 4th Gen Non reactive - Treatment Discharge Condition: Discharge condition good - Medication Discharge Medications: Ambulatory Orders Albuterol Sulfate Inhaler - [Ventolin Hfa Inhaler -] 2 inh PO Q4H PRN 03/29/19 Cyclobenzaprine HCl 10 mg PO BID 03/29/19 Ipratropium/Albuterol Sulfate [Combivent Respimat Inhal Herod] 2 inh IH BID Buprenorphine/Naloxone [Suboxone 8Mg/2Mg Sl Film -] 1 each SL BID 7 Days #14 packet MDD 2 04/06/19 Naloxone HCl [Narcan] 4 mg NS ONCE #1 spray 04/06/19 Gabapentin [Neurontin -] 600 mg PO TID 15 Days #90 capsule 04/07/19 - Medication-Assisted Treatment (MAT) Medication-Assisted Treatment (MAT): Yes Medication Prescribed: Suboxone MAT Follow-up Referral: [place], [place] - Discharge Instructions Diet, activity, other medical instructions: Diet: Activity: Other medical instructions:Follow up with CD aftercare at [facility] as recommended and scheduled. - Diagnosis (1) 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: Chronic (2) Cannabis dependence Current Visit: Yes Status: Chronic (3) Cocaine dependence Current Visit: Yes Status: Chronic Qualifiers: Substance use status: uncomplicated Qualified Code(s): F14.20 - Cocaine dependence, uncomplicated (4) History of multiple sclerosis Current Visit: Yes Status: Chronic (5) Nicotine dependence Current Visit: Yes Status: Chronic Qualifiers: Nicotine product type: cigarettes Substance use status: uncomplicated Qualified Code(s): F17.210 - Nicotine dependence, cigarettes, uncomplicated (6) Opioid dependence Current Visit: Yes Status: Chronic Qualifiers: Substance use status: uncomplicated Qualified Code(s): F11.20 - Opioid dependence, uncomplicated - Follow-up Referral Minutes to complete discharge: 20 - AMA Did Patient Leave Against Medical Advice: No Additional Comments: Courtesy Rx for Suboxone,narcan and Gabapentin electronically sent to [facility] for pharmacy picking tech after discharge.
[2019-04-06] MEDS: CYCLOBENZAPRINE HCL 10 MG TABLET (FP) PO PRN (21:14)
[2019-04-06] MEDS: THIAMINE HCL 100 MG TABLET (FP) PO SCH (21:14)
[2019-04-06] MEDS: MELATONIN 5 MG TABLETS PO PRN (21:14)
[2019-04-07] MEDS: GABAPENTIN 300 MG CAPSULE PO SCH (06:14)
[2019-04-07] MEDS: BUPRENORPHINE/NALOXONE 8 MG/2 MG FILM PACKET SL SCH (06:14)
[2019-04-07 07:16] VITALS: BP 109/75; PULSE 82; TEMP 98.2
[2019-04-07] MEDS: MINERAL OIL/PETROLAT/WATER TOPICAL CREAM 113 GM JAR TP SCH (09:23)
[2019-04-07] MEDS: BUDESONIDE/FORMETEROL FUMARATE 80/4.5 mcg INHALER IH SCH (09:24)
[2019-04-07] MEDS: PRENATAL VITAMINS W/ FOLIC ACID TABLET (FP) PO SCH (09:24)
[2019-04-07] MEDS: NICOTINE 21 MG/24 HOURS TOPICAL PATCH TD SCH (09:24)
--- NOTE | 2019-04-07 11:13 | PN ---
S Progress Note Note: pt was discharged today as scheduled. OOB ambulating with steady gait. Nad. Vital Signs - 24 hr 04/07/19 04/07/19 04/07/19 00:31 03:32 07:15 Temperature 98.2 F Pulse Rate 82 Respiratory 18 18 18 Rate Blood Pressure 109/75 To follow up with aftercare as per his discussions/recommendations with his counselor given in discharge package. To follow up with his primary care provider for medical management.
== END 2019-04-07 10:00 | disposition home or self-care (01) | DRG 772 ==
LOC: YASAS 17:06 → Y5N 17:07
PROVIDERS: ADMIT Allergy & Immunology; ATTEND Allergy & Immunology
PROC: HZ42ZZZ Group Counseling for Substance Abuse Treatment, Cognitive-Behavioral (ICD-10-PCS; principal; 2019-03-27)
DX: F11.20 Opioid dependence, uncomplicated (principal); F14.20 Cocaine dependence, uncomplicated; F12.20 Cannabis dependence, uncomplicated; F17.210 Nicotine dependence, cigarettes, uncomplicated; F32.9 Major depressive disorder, single episode, unspecified; G35 Multiple sclerosis; M79.606 Pain in leg, unspecified; H54.61 Unqualified visual loss, right eye, normal vision left eye; L85.3 Xerosis cutis; R21 Rash and other nonspecific skin eruption
CPT/HCPCS: 36415; 87389

== ENCOUNTER 2020-04-14 13:07 | Inpatient (IN) | payer OTHER ==
[2020-04-14 15:28] VITALS: BMI 24.0
[2020-04-14] MEDS ORDERED: METHADONE HCL 10 MG TABLET (FOR DETOX USE ONLY) PO ONE (16:37)
[2020-04-14] MEDS ORDERED: IBUPROFEN 400 MG TABLET (FP) PO PRN (16:37)
[2020-04-14] MEDS ORDERED: MAG HYDROX/AL HYDROX/SIMETH 30 ML UNIT-DOSE CUP PO PRN (16:37)
[2020-04-14] MEDS ORDERED: ACETAMINOPHEN 325 MG TABLET (FP) PO PRN ×2 (16:37)
[2020-04-14] MEDS ORDERED: METHOCARBAMOL 500 MG TABLET PO PRN (16:37)
[2020-04-14] MEDS ORDERED: MAGNESIUM HYDROX 2400MG/30ML ORAL SUSPENSION 30 ML CUP PO PRN (16:37)
[2020-04-14] MEDS ORDERED: MAGNESIUM CITRATE 300 ML BOTTLE PO PRN (16:37)
[2020-04-14] MEDS ORDERED: BISMUTH SUBSALICYLATE 524 MG/30 ML UD PO PRN (16:37)
[2020-04-14] MEDS ORDERED: MENTHOL/PHENOL 1 EACH UD MM PRN (16:37)
[2020-04-14] MEDS ORDERED: cloNIDine HCL 0.1 MG TABLET PO PRN (16:37)
[2020-04-14] MEDS ORDERED: NICOTINE POLACRILEX 2 MG GUM BUC PRN (16:37)
[2020-04-14] MEDS ORDERED: NALOXONE HCL 0.4 MG/ML VIAL IM PRN (16:37)
[2020-04-14] MEDS: THIAMINE HCL 100 MG TABLET (FP) PO SCH (22:17)
[2020-04-14] MEDS: MELATONIN 5 MG TABLETS PO SCH (22:18)
[2020-04-15] MEDS ORDERED: METHADONE HCL 5 MG TABLET (FOR DETOX USE ONLY) ONE (09:12)
[2020-04-15] MEDS ORDERED: METHADONE HCL 10 MG TABLET (FOR DETOX USE ONLY) ONE (09:13)
[2020-04-15] MEDS ORDERED: ALBUTEROL SO4 HFA INHALER IH PRN (09:45)
[2020-04-15] MEDS ORDERED: METHADONE (DETOX) 20 MG, METHADONE (DETOX) 5 MG PO ONE (10:00)
[2020-04-15] MEDS: NICOTINE 7 MG/24 HOURS TOPICAL PATCH TD SCH (10:11)
[2020-04-15] MEDS: PRENATAL VITAMINS W/ FOLIC ACID TABLET (FP) PO SCH (10:11)
[2020-04-15] MEDS: BUDESONIDE/FORMETEROL FUMARATE 80/4.5 mcg INHALER IH SCH (10:23)
[2020-04-15 10:53] LABS: HEMATOCRIT 38.7 % (35.4-49); HEMOGLOBIN 12.9 GM/dL (11.7-16.9); MCH 29.9 pg (25.7-33.7); MCHC 33.4 g/dl (32.0-35.9); MEAN CELL VOLUME 89.4 fl (80-96); PLATELET COUNT 355 K/MM3 (134-434); POTASSIUM 4.2 mmol/L (3.5-5.1); RBC 4.33 M/mm3 (4.00-5.60); RDW 15.8 % (11.9-15.9)
[2020-04-15 11:01] LABS: ALBUMIN 3.2 g/dl (3.4-5.0); BLOOD UREA NITROGEN 16.2 mg/dL (7-18)
[2020-04-15 11:04] LABS: CREATININE 0.8 mg/dL (0.55-1.3)
[2020-04-15 11:05] LABS: BILIRUBIN,TOTAL 0.3 mg/dL (0.2-1); TOT PROT 6.1 g/dl (6.4-8.2)
[2020-04-15 11:10] LABS: CALCIUM 8.4 mg/dL (8.5-10.1)
[2020-04-15] MEDS: CYCLOBENZAPRINE HCL 10 MG TABLET (FP) PO PRN (18:01)
[2020-04-16] MEDS: THIAMINE HCL 100 MG TABLET (FP) PO SCH ×2 (00:01→21:16)
[2020-04-16] MEDS: MELATONIN 5 MG TABLETS PO SCH ×2 (00:01→21:16)
[2020-04-16] MEDS: BUDESONIDE/FORMETEROL FUMARATE 80/4.5 mcg INHALER IH SCH ×3 (00:01→21:16)
[2020-04-16] MEDS ORDERED: METHADONE HCL 10 MG TABLET (FOR DETOX USE ONLY) PO ONE (10:00)
[2020-04-16] MEDS: PRENATAL VITAMINS W/ FOLIC ACID TABLET (FP) PO SCH (10:38)
[2020-04-16] MEDS: NICOTINE 7 MG/24 HOURS TOPICAL PATCH TD SCH (10:38)
[2020-04-16] MEDS ORDERED: GABAPENTIN 100 MG CAPSULE PO ONE (19:03)
[2020-04-16] MEDS: CYCLOBENZAPRINE HCL 10 MG TABLET (FP) PO PRN (20:31)
[2020-04-17] MEDS ORDERED: METHADONE HCL 5 MG TABLET (FOR DETOX USE ONLY) ONE (09:38)
[2020-04-17] MEDS ORDERED: METHADONE HCL 10 MG TABLET (FOR DETOX USE ONLY) ONE (09:38)
[2020-04-17] MEDS ORDERED: METHADONE (DETOX) 10 MG, METHADONE (DETOX) 5 MG PO ONE (10:00)
[2020-04-17] MEDS: PRENATAL VITAMINS W/ FOLIC ACID TABLET (FP) PO SCH (10:11)
[2020-04-17] MEDS: NICOTINE 7 MG/24 HOURS TOPICAL PATCH TD SCH (10:11)
[2020-04-17] MEDS: BUDESONIDE/FORMETEROL FUMARATE 80/4.5 mcg INHALER IH SCH ×2 (10:11→22:17)
[2020-04-17] MEDS: THIAMINE HCL 100 MG TABLET (FP) PO SCH (22:17)
[2020-04-17] MEDS: MELATONIN 5 MG TABLETS PO SCH (22:17)
[2020-04-17] MEDS: CYCLOBENZAPRINE HCL 10 MG TABLET (FP) PO PRN (22:18)
[2020-04-18] MEDS ORDERED: METHADONE HCL 10 MG TABLET (FOR DETOX USE ONLY) PO ONE (10:00)
[2020-04-18] MEDS: BUDESONIDE/FORMETEROL FUMARATE 80/4.5 mcg INHALER IH SCH ×2 (10:08→22:34)
[2020-04-18] MEDS: NICOTINE 7 MG/24 HOURS TOPICAL PATCH TD SCH (10:08)
[2020-04-18] MEDS: PRENATAL VITAMINS W/ FOLIC ACID TABLET (FP) PO SCH (10:09)
[2020-04-18] MEDS: CYCLOBENZAPRINE HCL 10 MG TABLET (FP) PO PRN ×2 (10:09→22:33)
[2020-04-18] MEDS: MELATONIN 5 MG TABLETS PO SCH (22:34)
[2020-04-18] MEDS: THIAMINE HCL 100 MG TABLET (FP) PO SCH (22:34)
[2020-04-19] MEDS ORDERED: METHADONE HCL 5 MG TABLET (FOR DETOX USE ONLY) PO ONE (06:00)
[2020-04-19 09:38] VITALS: BP 114/75; PULSE 110; TEMP 97.3
[2020-04-19] MEDS: BUDESONIDE/FORMETEROL FUMARATE 80/4.5 mcg INHALER IH SCH (10:40)
[2020-04-19] MEDS: PRENATAL VITAMINS W/ FOLIC ACID TABLET (FP) PO SCH (10:40)
[2020-04-19] MEDS: NICOTINE 7 MG/24 HOURS TOPICAL PATCH TD SCH (10:40)
== END 2020-04-19 14:28 | disposition other institution (70) | DRG 773 ==
LOC: YASAS 13:07 → Y6N 17:24
PROVIDERS: ADMIT Allergy & Immunology; ATTEND Allergy & Immunology
PROC: HZ2ZZZZ Detoxification Services for Substance Abuse Treatment (ICD-10-PCS; principal; 2020-04-14)
DX: F11.23 Opioid dependence with withdrawal (principal); F14.20 Cocaine dependence, uncomplicated; F12.20 Cannabis dependence, uncomplicated; F17.210 Nicotine dependence, cigarettes, uncomplicated; R26.81 Unsteadiness on feet
CPT/HCPCS: 36415; 80053; 85027; 86780; C9803; J0735; U0003